=== PATIENT | male | born 1970 | race Caucasian/White ===

== ENCOUNTER 2020-02-14 16:13 | Outpatient (CLI) | payer OTHER, SELFPAY ==
[2020-02-14 16:45] LABS: Basophils Absolute Auto 0.06 K/mm3 (0.00-0.10); Basophils Percent Auto 0.7 % (0.0-1.0); Eosinophils Absolute Auto 0.33 K/mm3 (0.02-0.50); Eosinophils Percent Auto 3.7 % (1.0-6.0); Hematocrit 45.4 % (40.0-54.0); Hemoglobin 15.8 g/dL (14.0-18.0); Immature Granulocyte Absolute 0.03 K/mm3 (0.00-0.00); Immature Granulocyte Percent A 0.3 % (0.0-0.0); Lymphocytes Absolute Auto 2.49 K/mm3 (1.10-4.50); Mean Corpuscular HGB Conc 34.8 g/dL (32.0-36.0); Mean Corpuscular Hemoglobin 31.1 pg (27.0-31.0); Mean Corpuscular Volume 89.4 fL (78.0-102.0); Mean Platelet Volume 9.7 fl (8.7-11.0); Monocytes Absolute Auto 0.86 K/mm3 (0.10-0.90); Monocytes Percent Auto 9.7 % (2.0-11.0); Neutrophils Absolute Auto 5.1 K/mm3 (1.7-7.2); Neutrophils Percent Auto 57.6 % (50.0-70.0); Platelet Count Result 265 K/mm3 (150-420); Red Blood Count 5.08 M/mm3 (4.70-6.10); Red Cell Distribution Width 11.9 % (11.6-14.4); White Blood Count 8.9 K/mm3 (4.8-10.8)
[2020-02-14 16:50] LABS: Add Urine Microscopic? YES; Appearance Urine Clear (Clear); Bilirubin Urine Negative (Negative); Blood Urine Negative (Negative); Color Urine Yellow (Yellow); Glucose Urine UA Negative (Negative); Ketones Urine Negative (Negative); Leukocyte Esterase Ur Negative (Negative); Nitrate Urine Negative (Negative); Protein Urine Trace (Negative); Specific Grav Ur 1.025 (1.010-1.020); Urobilinogen Urine 0.2 mg/dL (0.2-1.0)
[2020-02-14 17:03] LABS: Bacteria Urine Trace /hpf; RBC Urine 0-2 /hpf (0-2); WBC Urine 0-3 /hpf (0-3)
[2020-02-14 18:05] LABS: Alanine Aminotransferase 59 U/L (16-63); Albumin Level 4.4 g/dL (3.4-5.0); Alkaline Phosphatase 87 U/L (46-116); Anion Gap 14.1 mmol/L (7-16); Aspartate Amino Transferase 27 U/L (15-37); Bilirubin,Total 1.1 mg/dL (0.00-1.00); Blood Urea Nitrogen 18 mg/dL (7-18); Calcium 8.9 mg/dL (8.5-10.1); Carbon Dioxide 26 mmol/L (21-32); Chloride 105 mmol/L (98-108); Cholesterol 153 mg/dL (0-200); Estimated Glomerular Filt Rate > 60; Glucose 82 mg/dL (70-99); HDL Direct 50 mg/dL (40-60); LDL Cholesterol Calculated 89 mg/dL (<130); Osmolality Calculated 292 mOsm/kg (285-295); Potassium 4.1 mmol/L (3.5-5.1); Sodium 141 mmol/L (136-145); Total Protein 7.1 g/dL (6.4-8.2); Triglycerides 71 mg/dL (0-150)
== END 2020-02-14 16:14 | disposition home or self-care (01) ==
LOC: CHSLAB 16:22
PROVIDERS: PCP Internal Medicine; Visit Provider Internal Medicine
DX: Z00.00 Encounter for general adult medical examination without abnormal findings (principal); I25.10 Atherosclerotic heart disease of native coronary artery without angina pectoris; E78.5 Hyperlipidemia, unspecified; Z12.5 Encounter for screening for malignant neoplasm of prostate
CPT/HCPCS: 36415; 80053; 80061; 81001; 84153; 85025; G0103

== ENCOUNTER 2020-03-09 17:27 | Emergency (ER) | payer OTHER, SELFPAY ==
[2020-03-09 17:32] VITALS: BP 155/99; PULSE 70; RESP 20; TEMP 36.6; O2SAT 97
[2020-03-09] MEDS: TETANUS,DIPHTHERIA,AC PERTUSSIS ADULT 0.5 ML (ADACEL) IM (17:47)
--- NOTE | 2020-03-09 17:48 | ED_ITS ---
HPI - Extremity Problem General Chief complaint: Wound/Laceration Stated complaint: cut finger Source: patient Mode of arrival: ambulatory Limitations: no limitations History of Present Illness HPI Narrative: this is a 49-year-old male presents with injury to his right index finger after he was using a cutting knife in the kitchen and causing avulsion injury to the tip of his right index finger, currently bleeding otherwise has a good brisk radial pulse no other symptoms, no fever or chills no shortness of breath. Patient does take aspirin because of status post CA. MD Complaint: extremity pain Onset (ago): minute(s) Pain Consistency: constant Location: right and other (indec finger avulsion) Quality: aching Relieving factors: other (pressure) Exacerbating factors: nothing Review of Systems Review of Systems: All systems reviewed & are unremarkable except as noted in HPI and below PMFSH Past Medical History Medical History CAD (coronary artery disease) Exam Const: General: no acute distress and alert Nutritional Appearance: well nourished Orientation/consciousness: patient oriented x3 HENMT: Head: normal to inspection Eyes: Conjunctivae: conjunctivae normal Pupils: Equal, round and reactive pupils present Neck: Neck: normal visual inspection Chest: Chest palpation & inspection: normal inspection of the chest Resp: Effort & Inspection: normal respiratory effort Auscultation: clear to auscultation bilaterally GI: GI Palp: Yes Soft to palpation : Testes: Testes normal Skin: General skin exam: normal color Rashes: no rashes Wounds: wounds noted ( avulsion injury to the tip of his right index finger) Procedures Laceration Laceration 1: Date: 03/09/20 Time: 17:52 Side (If applicable): right ( avulsion injury of the tip of his right index finger) Description: other ( tetanus shot was given and Surgicel was placed on the tip of his finger) ====== Skin Level ====== ====== Subcutaneous Layer ====== ====== Muscle Layer ====== ====== Tendon Layer ====== Critical Care Time Critical Care Time Critical Care Time: No Discharge Plan Discharge Clinical Impression: Avulsion of skin Patient Disposition: Home, Self-Care Condition: Stable Instructions: Antibiotic Form, Skin Avulsion (ED) Additional Instructions: can remove Surgicel after 24 hours. If symptoms persist or worsen can follow- up with primary care physician. Follow-up/Referrals: Luther Elkins MD [Primary Care Provider] - Time of Disposition: 17:54
== END 2020-03-09 18:00 | disposition home or self-care (01) ==
PROVIDERS: Emergency Provider Emergency Medicine; PCP Internal Medicine
DX: S61.210A Laceration without foreign body of right index finger without damage to nail, initial encounter (principal); W26.0XXA Contact with knife, initial encounter
CPT/HCPCS: 12001; 90471; 90715; 99282

== ENCOUNTER 2020-10-03 06:59 | Outpatient (CLI) | payer OTHER, SELFPAY ==
[2020-10-03 09:01] LABS: Aspartate Amino Transferase 26 U/L (15-37); Cholesterol 158 mg/dL (0-200); HDL Direct 45 mg/dL (40-60); LDL Cholesterol Calculated 97 mg/dL (<130); Triglycerides 80 mg/dL (0-150)
== END 2020-10-03 07:00 | disposition home or self-care (01) ==
LOC: CHSLAB 07:04
PROVIDERS: PCP Internal Medicine; Visit Provider Specialist
DX: E78.5 Hyperlipidemia, unspecified (principal); I25.10 Atherosclerotic heart disease of native coronary artery without angina pectoris; Z79.899 Other long term (current) drug therapy
CPT/HCPCS: 36415; 80061; 84450

== ENCOUNTER 2021-01-13 09:48 | Outpatient (CLI) | payer OTHER, SELFPAY ==
[2021-01-13 10:45] LABS: Aspartate Amino Transferase 18 U/L (15-37)
[2021-01-16 07:56] LABS: Cholesterol 130 mg/dL (0-200); HDL Direct 47 mg/dL (40-60); LDL Cholesterol Calculated 74 mg/dL (<130); Triglycerides 46 mg/dL (0-150)
== END 2021-01-13 09:49 | disposition home or self-care (01) ==
LOC: CHSLAB 09:50
PROVIDERS: PCP Internal Medicine; Visit Provider Specialist
DX: E78.5 Hyperlipidemia, unspecified (principal)
CPT/HCPCS: 36415; 80061; 84450

== ENCOUNTER 2021-02-17 04:21 | Emergency (ER) | payer OTHER, SELFPAY ==
--- NOTE | ~2021-02-17 | XR_ITS ---
XR chest 2V DATE: 02/17/2021 05:01 INDICATION: Shortness of breath TECHNIQUE: 2 views COMPARISON: 03/13/2015 2 view chest FINDINGS: Normal heart size. No hilar or mediastinal enlargement. No pulmonary infiltrate or consolid ation, pleural effusion or pulmonary vascular congestion or pneumothorax. IMPRESSION: No active cardiopulmonary disease Reviewed, dictated and finalized at location A.
--- NOTE | 2021-02-17 04:27 | ECG_ITS ---
Measurements Intervals [place] Rate: 71 P: 29 ME: 190 QRS: -5 QRSD: 89 T: 18 QT: 384 QTc: 419 Interpretive Statements SINUS RHYTHM INFERIOR INFARCT, AGE INDETERMINATE BASELINE ARTIFACT- V4-V6 ABNORMAL ECG Electronically Signed On 02-17-2021 11:36:44 CDT by Phillip Carrion D.O.
[2021-02-17 04:33] VITALS: BP 150/90; PULSE 99; RESP 18; TEMP 36.6; O2SAT 98
--- NOTE | 2021-02-17 04:39 | ED.SOB ---
HPI - SOB/Dyspnea General Chief Complaint: Shortness of Breath/Dyspnea Stated Complaint: Throat Swollen Time Seen by Provider: 02/17/21 04:50 Source: patient and family Mode of arrival: ambulatory Limitations: no limitations History of Present Illness HPI Narrative: Patient comes in with complaints of swelling in his uvula. Patient states he was well when he went to bed and woke up with swelling in his uvula 4am, and has felt his throat was swelled. He has had no fever or chills. He has not had a cough. He has had no significant nasal discharge. He has not felt the swelling in the uvula has gotten any worse since it started. The swelling has been associated with some mild anxiety. Onset (ago): minute(s) Timing: constant Severity: mild Exacerbating factors: lying flat Relieving factors: upright position Associated symptoms: denies other symptoms Related Data Home Medications Medication Instructions Recorded Confirmed alprazolam 0.25 mg PO PRN PRN 03/09/20 02/17/21 aspirin [Aspirin Low Dose] 81 mg PO DAILY 03/09/20 02/17/21 atorvastatin 40 mg PO DAILY 03/09/20 02/17/21 carvedilol 3.125 mg PO BID 03/09/20 02/17/21 duloxetine 30 mg PO DAILY 03/09/20 02/17/21 lisinopril 2.5 mg PO DAILY 03/09/20 02/17/21 lorazepam 0.5 mg PO HS 03/09/20 02/17/21 Allergies Allergy/AdvReac Type Severity Reaction Status Date / Time Penicillins Allergy Rash Verified 03/09/20 18:06 Review of Systems Constitutional: Constitutional: Reports no additional constitutional complaints Eyes: Eyes: Reports no additional eye complaints ENT: Reports as per HPI Cardiovascular: Cardiovascular: Reports no additional cardiovascular complaints Respiratory: Respiratory: Reports no additional respiratory complaints Gastrointestinal: Gastrointestinal: Reports no additional gastrointestinal complaints Genitourinary: Genitourinary: Reports no additional male genitourinary complaints Integumentary/Breasts: Skin/Breast: Reports system reviewed and no additional complaints, except as docu Neurologic: Reports system reviewed and no additional complaints, except as documented Psychiatric: Psychiatric: Reports no additional psychiatric complaints Endocrine: Endocrine: Reports no additional endocrine complaints Hematologic/Lymphatic: Hematologic/Lymphatic: Reports no additional hematologic/lymphatic complaints Allergic/Immunologic: Allergic/Immunologic: Reports no additional allergic/immunologic complaints [facility] Past Medical History Medical History (Updated 02/17/21 @ 06:57 by Elie Davis MD) Anxiety disorder CAD (coronary artery disease) Hyperlipidemia Hypertension Surgical History Surgical History H/O vasectomy Family History Family History Mother Cerebrovascular accident Father CAD (coronary artery disease) Social History Social History Gender identity (if verbalized by the patient): Male Exam Const: General: no acute distress Orientation/consciousness: patient oriented x3 HENMT: Ears: external ears normal and TM's normal bilaterally General nose exam: Normal external nose present Face and sinus: normal facial exam Mouth: Yes Normal oral and palatal mucosa present Other: Uvula appears moderately swollen. No nodes felt. Eyes: Conjunctivae: conjunctivae normal Neck: Neck: normal visual inspection Chest: Chest palpation & inspection: normal inspection of the chest Resp: Effort & Inspection: normal respiratory effort Auscultation: clear to auscultation bilaterally Cardio: Rate: regular rate Rhythm: regular rhythm GI: GI Palp: Yes Soft to palpation (nontender) Skin: General skin exam: normal color Neuro: General: patient oriented x3 and moves all extremities Extrem: General: normal to inspection Psych: Mental Status: mental status grossly normal Thoug
[2021-02-17 04:45] LABS: Basophils Absolute Auto 0.06 K/mm3 (0.00-0.10); Basophils Percent Auto 0.6 % (0.0-1.0); Eosinophils Percent Auto 3.8 % (1.0-6.0); Hematocrit 45.4 % (40.0-54.0); Hemoglobin 15.5 g/dL (14.0-18.0); Immature Granulocyte Absolute 0.02 K/mm3 (0.00-0.00); Immature Granulocyte Percent A 0.2 % (0.0-0.0); Lymphocytes Absolute Auto 1.81 K/mm3 (1.10-4.50); Lymphocytes Percent Auto 17.1 % (18.0-42.0); Mean Corpuscular HGB Conc 34.1 g/dL (32.0-36.0); Mean Corpuscular Hemoglobin 30.4 pg (27.0-31.0); Mean Platelet Volume 9.7 fl (8.7-11.0); Monocytes Absolute Auto 0.84 K/mm3 (0.10-0.90); Monocytes Percent Auto 7.9 % (2.0-11.0); Neutrophils Absolute Auto 7.4 K/mm3 (1.7-7.2); Neutrophils Percent Auto 70.4 % (50.0-70.0); Platelet Count Result 224 K/mm3 (150-420); Red Cell Distribution Width 11.9 % (11.6-14.4); White Blood Count 10.6 K/mm3 (4.8-10.8)
[2021-02-17 04:58] LABS: D Dimer 0.33 mg/L (0.19-0.50)
[2021-02-17 05:00] LABS: BNP 5.7 pg/mL (0-100)
[2021-02-17] MEDS: DEXAMETHASONE SOD PHOS INJ 4 MG/ML VIAL 12 MG BY MOUTH (05:01)
[2021-02-17 05:02] LABS: Alanine Aminotransferase 64 U/L (16-63); Alkaline Phosphatase 82 U/L (46-116); Anion Gap 8 mmol/L (8-16); Aspartate Amino Transferase 25 U/L (15-37); Bilirubin,Total 0.7 mg/dL (0.00-1.00); Blood Urea Nitrogen 23 mg/dL (7-18); Calcium 8.5 mg/dL (8.5-10.1); Carbon Dioxide 26 mmol/L (21-32); Chloride 102 mmol/L (98-108); Estimated CRCL calculation 72 ml/min; Estimated Glomerular Filt Rate > 60; Glucose 109 mg/dL (70-99); Osmolality Calculated 286 mOsm/kg (285-295); Potassium 4.1 mmol/L (3.5-5.1); Sodium 136 mmol/L (136-145); Total Protein 7.1 g/dL (6.4-8.2); Troponin I 7.6 ng/L (0.00-60.4)
[2021-02-17] MEDS: FAMOTIDINE 20 MG TABLET 40 MG PO (05:02)
[2021-02-17] MEDS: EPINEPHrine HCL INJ 1 MG/ML AMPUL 0.3 MG IM (05:02)
[2021-02-17] MEDS: diphenhydrAMINE HCl INJ 50 MG/ML VIAL IM (05:02)
--- NOTE | 2021-02-17 05:25 | PC.NURSE ---
resting quietly, at side. No SOB noted
[2021-02-17 07:50] VITALS: BP 126/89
== END 2021-02-17 07:50 | disposition home or self-care (01) ==
PROVIDERS: Emergency Provider Emergency Medicine; PCP Internal Medicine
DX: T78.40XA Allergy, unspecified, initial encounter (principal)
CPT/HCPCS: 36415; 71046; 80053; 83880; 84484; 85025; 85380; 93005; 96372; 99283; 99284; A9270; J0171; J1100; J1200

== ENCOUNTER 2021-06-13 09:07 | Outpatient (CLI) | payer OTHER, SELFPAY ==
[2021-06-13 11:05] LABS: Alanine Aminotransferase 59 U/L (16-63); Albumin Level 4.3 g/dL (3.4-5.0); Alkaline Phosphatase 85 U/L (46-116); Anion Gap 12 mmol/L (8-16); Aspartate Amino Transferase 24 U/L (15-37); Bilirubin,Total 0.9 mg/dL (0.00-1.00); Blood Urea Nitrogen 20 mg/dL (7-18); Calcium 9.1 mg/dL (8.5-10.1); Carbon Dioxide 25 mmol/L (21-32); Chloride 105 mmol/L (98-108); Estimated Glomerular Filt Rate > 60; Glucose 93 mg/dL (70-99); Osmolality Calculated 296 mOsm/kg (285-295); Potassium 4.4 mmol/L (3.5-5.1); Sodium 142 mmol/L (136-145)
[2021-06-18 19:32] LABS: Hepatitis A Antibody IgM Nonreactive; Hepatitis B Core Antibody Nonreactive (Nonreactive); Hepatitis B Surface Antigen Nonreactive (Nonreactive); Hepatitis C Signal to Cutoff 0.01 ratio (<1.00); Hepatitis C Virus Antibody Nonreactive (Nonreactive)
== END 2021-06-13 09:08 | disposition home or self-care (01) ==
LOC: CHSLAB 09:09
PROVIDERS: PCP Internal Medicine; Visit Provider Internal Medicine
DX: R94.5 Abnormal results of liver function studies (principal)
CPT/HCPCS: 36415; 80053; 80074

== ENCOUNTER 2021-10-17 16:05 | Outpatient (CLI) | payer OTHER, SELFPAY ==
[2021-10-17 16:56] LABS: Alanine Aminotransferase 52 U/L (16-63); Albumin Level 4.3 g/dL (3.4-5.0); Alkaline Phosphatase 86 U/L (46-116); Anion Gap 9 mmol/L (8-16); Aspartate Amino Transferase 23 U/L (15-37); Blood Urea Nitrogen 19 mg/dL (7-18); Calcium 9.2 mg/dL (8.5-10.1); Carbon Dioxide 29 mmol/L (21-32); Chloride 101 mmol/L (98-108); Cholesterol 149 mg/dL (0-200); Estimated Glomerular Filt Rate > 60; Glucose 95 mg/dL (70-99); HDL Direct 47 mg/dL (40-60); LDL Cholesterol Calculated 83 mg/dL (<130); Osmolality Calculated 290 mOsm/kg (285-295); Potassium 4.6 mmol/L (3.5-5.1); Prostate Specific Antigen 1.6 ng/mL (< OR = 4.0); Sodium 139 mmol/L (136-145); Total Protein 7.7 g/dL (6.4-8.2); Triglycerides 94 mg/dL (0-150)
== END 2021-10-17 16:06 | disposition home or self-care (01) ==
LOC: CHSLAB 16:13
PROVIDERS: PCP Internal Medicine; Visit Provider Internal Medicine
DX: Z00.00 Encounter for general adult medical examination without abnormal findings (principal); Z12.5 Encounter for screening for malignant neoplasm of prostate
CPT/HCPCS: 36415; 80053; 80061; 84153; G0103

== ENCOUNTER 2022-05-27 13:06 | Outpatient (CLI) | payer OTHER, BC, SELFPAY ==
[2022-05-27 13:30] LABS: Basophils Absolute Auto 0.03 K/mm3 (0.00-0.10); Basophils Percent Auto 0.5 % (0.0-1.0); Eosinophils Absolute Auto 0.28 K/mm3 (0.02-0.50); Eosinophils Percent Auto 4.3 % (1.0-6.0); Hematocrit 43.7 % (40.0-54.0); Hemoglobin 15.1 g/dL (14.0-18.0); Immature Granulocyte Absolute 0.02 K/mm3 (0.00-0.00); Immature Granulocyte Percent A 0.3 % (0.0-0.0); Lymphocytes Absolute Auto 1.65 K/mm3 (1.10-4.50); Lymphocytes Percent Auto 25.2 % (18.0-42.0); Mean Corpuscular HGB Conc 34.6 g/dL (32.0-36.0); Mean Corpuscular Hemoglobin 30.9 pg (27.0-31.0); Mean Corpuscular Volume 89.5 fL (78.0-102.0); Mean Platelet Volume 9.6 fl (8.7-11.0); Monocytes Absolute Auto 0.61 K/mm3 (0.10-0.90); Monocytes Percent Auto 9.3 % (2.0-11.0); Neutrophils Percent Auto 60.4 % (50.0-70.0); Platelet Count Result 210 K/mm3 (150-420); Red Blood Count 4.88 M/mm3 (4.70-6.10); Red Cell Distribution Width 11.9 % (11.6-14.4); White Blood Count 6.5 K/mm3 (4.8-10.8)
[2022-05-27 13:31] LABS: Add Urine Microscopic? NO; Appearance Urine Clear (Clear); Bilirubin Urine Negative (Negative); Blood Urine Negative (Negative); Color Urine Yellow (Yellow); Glucose Urine UA Negative (Negative); Ketones Urine Negative (Negative); Leukocyte Esterase Ur Negative (Negative); Nitrate Urine Negative (Negative); Protein Urine Negative (Negative); Urobilinogen Urine 0.2 mg/dL (0.2-1.0); pH Urine 6.5 (5.0-8.0)
[2022-05-27 13:47] LABS: Alanine Aminotransferase 57 U/L (16-63); Albumin Level 4.1 g/dL (3.4-5.0); Alkaline Phosphatase 85 U/L (46-116); Anion Gap 7 mmol/L (8-16); Aspartate Amino Transferase 24 U/L (15-37); Blood Urea Nitrogen 18 mg/dL (7-18); Calcium 8.7 mg/dL (8.5-10.1); Carbon Dioxide 27 mmol/L (21-32); Chloride 107 mmol/L (98-108); Cholesterol 141 mg/dL (0-200); Estimated Glomerular Filt Rate > 60; Glucose 102 mg/dL (70-99); HDL Direct 56 mg/dL (40-60); LDL Cholesterol Calculated 73 mg/dL (<130); Osmolality Calculated 293 mOsm/kg (285-295); Potassium 4.2 mmol/L (3.5-5.1); Sodium 141 mmol/L (136-145); Total Protein 7.1 g/dL (6.4-8.2); Triglycerides 59 mg/dL (0-150)
== END 2022-05-27 13:07 | disposition home or self-care (01) ==
LOC: CHSLAB 13:18
PROVIDERS: PCP Internal Medicine; Visit Provider Internal Medicine
DX: E78.5 Hyperlipidemia, unspecified (principal); I10 Essential (primary) hypertension
CPT/HCPCS: 36415; 80053; 80061; 81003; 85025

== ENCOUNTER 2022-12-02 16:34 | Outpatient (CLI) | payer OTHER, BC, SELFPAY ==
[2022-12-02 17:31] LABS: Prostate Specific Antigen 2.3 ng/mL (< OR = 4.0)
== END 2022-12-02 16:35 | disposition home or self-care (01) ==
LOC: CHSLAB 16:37
PROVIDERS: PCP Internal Medicine; Visit Provider Internal Medicine
DX: Z12.5 Encounter for screening for malignant neoplasm of prostate (principal)
CPT/HCPCS: 36415; 84153; G0103

== ENCOUNTER 2023-06-27 08:37 | Outpatient (CLI) | payer OTHER, BC, SELFPAY ==
[2023-06-27 08:49] LABS: Basophils Absolute Auto 0.07 K/mm3 (0.00-0.10); Basophils Percent Auto 1.2 % (0.0-1.0); Eosinophils Absolute Auto 0.26 K/mm3 (0.02-0.50); Eosinophils Percent Auto 4.5 % (1.0-6.0); Hematocrit 46.8 % (40.0-54.0); Hemoglobin 16.3 g/dL (14.0-18.0); Immature Granulocyte Absolute 0.01 K/mm3 (0.00-0.00); Immature Granulocyte Percent A 0.2 % (0.0-0.0); Lymphocytes Absolute Auto 1.42 K/mm3 (1.10-4.50); Lymphocytes Percent Auto 24.8 % (18.0-42.0); Mean Corpuscular HGB Conc 34.8 g/dL (32.0-36.0); Mean Corpuscular Hemoglobin 30.8 pg (27.0-31.0); Mean Corpuscular Volume 88.3 fL (78.0-102.0); Mean Platelet Volume 9.5 fl (8.7-11.0); Monocytes Absolute Auto 0.43 K/mm3 (0.10-0.90); Monocytes Percent Auto 7.5 % (2.0-11.0); Neutrophils Absolute Auto 3.5 K/mm3 (1.7-7.2); Neutrophils Percent Auto 61.8 % (50.0-70.0); Platelet Count Result 240 K/mm3 (150-420); Red Cell Distribution Width 11.7 % (11.6-14.4); White Blood Count 5.7 K/mm3 (4.8-10.8)
[2023-06-27 09:19] LABS: Alanine Aminotransferase 39 U/L (16-63); Alkaline Phosphatase 101 U/L (46-116); Anion Gap 10 mmol/L (8-16); Aspartate Amino Transferase 17 U/L (15-37); Bilirubin,Total 0.9 mg/dL (0.00-1.00); Blood Urea Nitrogen 21 mg/dL (7-18); Carbon Dioxide 26 mmol/L (21-32); Chloride 104 mmol/L (98-108); Cholesterol 138 mg/dL (0-200); Estimated Glomerular Filt Rate > 60; Glucose 101 mg/dL (70-99); HDL Direct 42 mg/dL (40-60); LDL Cholesterol Calculated 86 mg/dL (<130); Osmolality Calculated 293 mOsm/kg (285-295); Potassium 4.5 mmol/L (3.5-5.1); Sodium 140 mmol/L (136-145); Total Protein 6.9 g/dL (6.4-8.2); Triglycerides 49 mg/dL (0-150)
== END 2023-06-27 08:38 | disposition home or self-care (01) ==
LOC: CHSLAB 08:39
PROVIDERS: PCP Internal Medicine; Visit Provider Internal Medicine
DX: I10 Essential (primary) hypertension (principal); E78.5 Hyperlipidemia, unspecified
CPT/HCPCS: 36415; 80053; 80061; 85025

== ENCOUNTER 2023-10-15 13:47 | Outpatient (CLI) | payer OTHER, BC, SELFPAY ==
[2023-10-15 14:56] LABS: Alanine Aminotransferase 90 U/L (16-63); Albumin Level 4.5 g/dL (3.4-5.0); Alkaline Phosphatase 96 U/L (46-116); Anion Gap 7 mmol/L (8-16); Aspartate Amino Transferase 39 U/L (15-37); Bilirubin,Total 1.4 mg/dL (0.00-1.00); Blood Urea Nitrogen 17 mg/dL (7-18); Calcium 9.3 mg/dL (8.5-10.1); Carbon Dioxide 30 mmol/L (21-32); Chloride 102 mmol/L (98-108); Cholesterol 132 mg/dL (0-200); Creatine Kinase 113 U/L (39-308); Estimated Glomerular Filt Rate > 60; Glucose 91 mg/dL (70-99); HDL Direct 50 mg/dL (40-60); LDL Cholesterol Calculated 67 mg/dL (<130); Osmolality Calculated 289 mOsm/kg (285-295); Potassium 4.1 mmol/L (3.5-5.1); Sodium 139 mmol/L (136-145); Total Protein 7.7 g/dL (6.4-8.2); Triglycerides 74 mg/dL (0-150)
== END 2023-10-15 13:48 | disposition home or self-care (01) ==
PROVIDERS: PCP Internal Medicine; Visit Provider Internal Medicine
DX: E78.5 Hyperlipidemia, unspecified (principal); I10 Essential (primary) hypertension
CPT/HCPCS: 36415; 80053; 80061; 82550

== ENCOUNTER 2024-01-14 19:47 | Emergency (ER) | payer OTHER, BC, SELFPAY ==
[2024-01-14] VITALS (27 sets, daily range): BP systolic 102–151; BP diastolic 65–96; PULSE 56–77; RESP 14–27; TEMP 35.8–36.4; O2SAT 88–100
--- NOTE | ~2024-01-14 | XR_ITS ---
EXAMINATION: XR chest 1V portable INDICATION: Chest pain TECHNIQUE: Portable AP chest at 2030 hours COMPARISON: 02/17/2021 FINDINGS: The lungs are free of acute opacities. No pleural effusion or pneumothorax. The cardiomedia stinal silhouette is normal. IMPRESSION: 1. No acute cardiopulmonary abnormality. Reviewed, dictated and finalized at location F. NNER
--- NOTE | 2024-01-14 19:48 | ECG_ITS ---
Measurements Intervals [place] Rate: 64 P: 33 [place]: 178 QRS: -2 QRSD: 87 T: 42 QT: 410 QTc: 424 Interpretive Statements SINUS RHYTHM COMPARED TO ECG 02/17/2021 04:35:29 NO SIGNIFICANT CHANGES Electronically Signed On 01-15-2024 15:24:20 CIRCULATION ASSISTANT by Tera Reyes M.D.
--- NOTE | 2024-01-14 19:54 | ED.CHESTPAIN ---
HPI - Chest Pain General Chief Complaint: Chest Pain Stated Complaint: chest pain Time Seen by Provider: 01/14/24 19:54 Source: patient and family Mode of arrival: ambulatory Limitations: no limitations History of Present Illness HPI narrative: 53-year-old male with a remote history of smoking and quit 25 years ago, regular alcohol use, hypertension, dyslipidemia, CAD/DE in 2012 following which he had a cardiac catheterization which did not show any significant occlusive disease was recently treated for bronchitis with bronchospasm with Zithromax presents to the ER with a 40 minute history of -- severe epigastric pain which is rated as 6/10. Pain is intermittent. No relief with sublingual nitro. No radiation of the pain. -- Diaphoresis no shortness of breath. No lightheadedness. No nausea/vomiting. after his cardiac event in 2012 the patient has not had any episodes of chest pain. MD complaint: other ( Epigastric pain) Pertinent past history: prior [place] Onset (ago): minute(s) ( 40 minutes) Timing of current episode: episodic Prior episodes: No Onset: during rest Pain location: epigastric Pain radiation: none Pain scale (0-10): 6 Quality: aching Relieving factors: nothing Exacerbating factors: nothing Associated symptoms: diaphoresis Treatment prior to arrival: none Risk Factors Coronary artery disease risk factors: hyperlipidemia and hypertension Thoracic aortic dissection risk factors: longstanding hypertension Related Data Home Medications Medication Instructions Recorded Confirmed alprazolam 0.25 mg tablet (Xanax) 0.25 mg PO PRN PRN Anxiety 03/09/20 01/14/24 aspirin 81 mg tablet,delayed 81 mg PO DAILY 03/09/20 01/14/24 release (Jonel Low Dose Aspirin) atorvastatin 40 mg tablet (Lipitor) 40 mg PO DAILY 03/09/20 01/14/24 carvedilol 3.125 mg tablet (Coreg) 3.125 mg PO BID 03/09/20 01/14/24 lorazepam 0.5 mg tablet (Ativan) 0.5 mg PO HS 03/09/20 01/14/24 losartan 50 mg tablet (Cozaar) 50 mg PO DAILY 01/14/24 01/14/24 Allergies Allergy/AdvReac Type Severity Reaction Status Date / Time niacin Allergy Unknown Unknown Verified 01/14/24 20:55 simvastatin Allergy Unknown Unknown Verified 01/14/24 20:55 ticagrelor Allergy Unknown Unknown Verified 01/14/24 20:55 Penicillins Allergy Rash Verified 01/14/24 20:55 Review of Systems Review of Systems: All systems reviewed & are unremarkable except as noted in HPI and below Constitutional: Constitutional: Reports as per HPI and Reports no additional constitutional complaints Eyes: Eyes: Reports as per HPI and Reports no additional eye complaints ENT: Reports system reviewed and no additional complaints, except as documented and Reports as per HPI Cardiovascular: Cardiovascular: Reports as per HPI, Reports no additional cardiovascular complaints and Reports chest pain Respiratory: Respiratory: Reports as per HPI and Reports no additional respiratory complaints Gastrointestinal: Gastrointestinal: Reports as per HPI and Reports no additional gastrointestinal complaints Comments: epigastric pain Genitourinary: Genitourinary: Reports no additional male genitourinary complaints and Reports as per HPI Musculoskeletal: Musculoskeletal: Reports no additional musculoskeletal complaints and Reports as per HPI Integumentary/Breasts: Skin/Breast: Reports system reviewed and no additional complaints, except as docu and Reports as per HPI Neurologic: Reports system reviewed and no additional complaints, except as documented and Reports as per HPI Psychiatric: Psychiatric: Reports no additional psychiatric complaints and Reports as per HPI Endocrine: Endocrine: Reports no additional endocrine complaints and Reports as per HPI Hematologic/Lymphatic: Hematologic/Lymphatic: Reports no additional hematologic/lymphatic complaints and Reports as per HPI Allergic/Immunologic: Allergic/Immunologic: Reports no additional allergic/immunologic complaints and Reports as per HPI
[2024-01-14 20:15] LABS: Basophils Absolute Auto 0.06 K/mm3 (0.00-0.10); Basophils Percent Auto 0.9 % (0.0-1.0); Eosinophils Absolute Auto 0.37 K/mm3 (0.02-0.50); Eosinophils Percent Auto 5.8 % (1.0-6.0); Hematocrit 44.2 % (40.0-54.0); Hemoglobin 15.5 g/dL (14.0-18.0); Immature Granulocyte Absolute 0.01 K/mm3 (0.00-0.00); Immature Granulocyte Percent A 0.2 % (0.0-0.0); Lymphocytes Absolute Auto 2.34 K/mm3 (1.10-4.50); Lymphocytes Percent Auto 36.7 % (18.0-42.0); Mean Corpuscular HGB Conc 35.1 g/dL (32.0-36.0); Mean Corpuscular Hemoglobin 29.7 pg (27.0-31.0); Mean Corpuscular Volume 84.7 fL (78.0-102.0); Mean Platelet Volume 9.2 fl (8.7-11.0); Monocytes Absolute Auto 0.48 K/mm3 (0.10-0.90); Monocytes Percent Auto 7.5 % (2.0-11.0); Neutrophils Absolute Auto 3.1 K/mm3 (1.7-7.2); Neutrophils Percent Auto 48.9 % (50.0-70.0); Platelet Count Result 263 K/mm3 (150-420); Red Blood Count 5.22 M/mm3 (4.70-6.10); Red Cell Distribution Width 11.5 % (11.6-14.4); White Blood Count 6.4 K/mm3 (4.8-10.8)
[2024-01-14 20:30] LABS: Partial Thromboplastin Time 26.1 SEC (23.90-30.70); Prothrombin Time 10.9 Seconds (9.50-12.10)
--- NOTE | 2024-01-14 20:30 | PC.NURSE ---
CHILD CARE COORDINATOR AT BEDSIDE FOR IMAGING. PATIENT AWAITING RESULTS OF BLOOD WORK. SPOUSE AT BEDSIDE.
[2024-01-14 20:39] LABS: Alanine Aminotransferase 70 U/L (16-63); Albumin Level 3.8 g/dL (3.4-5.0); Alkaline Phosphatase 103 U/L (46-116); Anion Gap 10 mmol/L (8-16); Aspartate Amino Transferase 26 U/L (15-37); Bilirubin,Total 0.7 mg/dL (0.00-1.00); Blood Urea Nitrogen 17 mg/dL (7-18); Calcium 8.9 mg/dL (8.5-10.1); Carbon Dioxide 27 mmol/L (21-32); Chloride 102 mmol/L (98-108); Estimated CRCL calculation 91 ml/min; Estimated Glomerular Filt Rate > 60; Glucose 121 mg/dL (70-99); Lipase 51 U/L (16-77); NT Pro B Type Natriuretic Pept 31 pg/mL (0-125); Osmolality Calculated 290 mOsm/kg (285-295); Potassium 3.7 mmol/L (3.5-5.1); Sodium 139 mmol/L (136-145); Troponin I 9.1 ng/L (0.00-60.4)
[2024-01-14] MEDS: ASPIRIN 81 MG CHEWABLE TABLET 324 MG PO (20:41)
--- NOTE | 2024-01-14 20:47 | PC.NURSE ---
PATIENT MEDICATED PER ORDER, SEE MAR. PATIENT AWAKE AND ALERT, NOW STATES PAIN IS 5-6/10. PATIENT AWAITING RESULTS. SPOUSE REMAINS AT BEDSIDE.
[2024-01-14] MEDS: MORPHINE SULFATE (*CRX) 4 MG/ML INJ IM (21:15)
[2024-01-14] MEDS: ONDANSETRON HCL ODT 4 MG TABLET PO (21:15)
--- NOTE | 2024-01-14 21:20 | PC.NURSE ---
PATIENT MEDICATED, SEE MAR. PATIENT DENIES FURTHER NEEDS, VSS. SPOUSE AT BEDSIDE. PATIENT AWARE OF REPEAT TROPONIN BLOOD WORK, TO BE DRAWN AROUND 2300. CALL LIGHT WITHIN REACH.
--- NOTE | 2024-01-14 21:45 | PC.NURSE ---
DR. DE AT BEDSIDE FOR RE-EVALUATION. PATIENT REPORTS CONTINUED PAIN DESPITE BEING MEDICATED, SEE MAR.
--- NOTE | 2024-01-14 21:53 | PC.NURSE ---
PER ERP PLEASE COMPLETE REPEAT EKG AT 2310. TO BE TIMED AND NOT STAT.
--- NOTE | 2024-01-14 22:05 | PC.NURSE ---
PATIENT AWAKE AND ALERT, RESTING ON STRETCHER WITH SPOUSE AT BEDSIDE. NO NEW NEEDS. NO DISTRESS. CALL LIGHT WITHIN REACH.
--- NOTE | 2024-01-14 23:10 | ECG_ITS ---
Measurements Intervals [place] Rate: 71 P: 68 [place]: 186 QRS: 5 QRSD: 104 T: 44 QT: 421 QTc: 459 Interpretive Statements SINUS RHYTHM COMPARED TO ECG 01/14/2024 19:56:51 NO SIGNIFICANT CHANGES Electronically Signed On 01-15-2024 15:24:37 EXHAUST AND MUFFLER REPAIRER by Tera Reyes M.D.
--- NOTE | 2024-01-14 23:12 | PC.NURSE ---
REPEAT EKG COMPLETED AND DOLORES AT BEDSIDE FOR REPEAT BLOOD DRAW. PATIENT AWAKE AND ALERT, DENIES NEEDS. SPOUSE REMAINS AT BEDSIDE. CALL LIGHT WITHIN REACH.
[2024-01-14 23:33] LABS: Troponin I 7.8 ng/L (0.00-60.4)
--- NOTE | 2024-01-14 23:45 | PC.NURSE ---
DR DE AT BEDSIDE FOR PATIENT UPDATE.
[2024-01-14] MEDS: PANTOPRAZOLE 40 MG TABLET PO (23:49)
--- NOTE | 2024-01-15 00:20 | PC.NURSE ---
PRINTER ISSUE TEMPORARILY DELAYED PATIENT DISCHARGE.
== END 2024-01-15 00:15 | disposition home or self-care (01) ==
PROVIDERS: Emergency Provider Internal Medicine Critical Care Medicine; PCP Internal Medicine
DX: R10.13 Epigastric pain (principal); R07.9 Chest pain, unspecified; I10 Essential (primary) hypertension; E78.5 Hyperlipidemia, unspecified; I25.2 Old myocardial infarction; I25.10 Atherosclerotic heart disease of native coronary artery without angina pectoris; F41.9 Anxiety disorder, unspecified; Z87.891 Personal history of nicotine dependence; Z79.82 Long term (current) use of aspirin; Z79.899 Other long term (current) drug therapy; Z95.5 Presence of coronary angioplasty implant and graft
CPT/HCPCS: 36415; 71045; 80053; 83690; 83880; 84484; 85025; 85610; 85730; 93005; 96372; 99284; A9270; J2270

== ENCOUNTER 2024-01-16 13:54 | Outpatient (CLI) | payer OTHER, BC, SELFPAY ==
[2024-01-16 14:33] LABS: Creatine Kinase 165 U/L (39-308); Lactate Dehydrogenase 209 U/L (85-227); Troponin I 9.4 ng/L (0.00-60.4)
== END 2024-01-16 13:55 | disposition home or self-care (01) ==
LOC: CHSLAB 13:57
PROVIDERS: PCP Internal Medicine; Visit Provider Internal Medicine
DX: R10.9 Unspecified abdominal pain (principal); R07.9 Chest pain, unspecified; R94.5 Abnormal results of liver function studies
CPT/HCPCS: 36415; 82550; 82553; 83615; 84484

== ENCOUNTER 2024-01-19 07:25 | Outpatient (CLI) | payer OTHER, BC, SELFPAY ==
--- NOTE | ~2024-01-19 | US_ITS ---
EXAMINATION: US right upper quadrant DATE: 01/19/2024 07:50 INDICATION: Epigastric abdominal pain. Abnormal liver function tests. TECHNIQUE: Multiple grayscale and Doppler ultrasound images of the abdomen were obtained. COMPARISON: CT abdomen and pelvis 12/20/2015 FINDINGS: The visualized portions of the head and body of pancreas are normal. The liver is normal wi thout focal lesion. No liver surface nodularity. There is normal flow in main portal vein. The gallbl adder is contracted. No gallstones. There was no sonographic Tolliver sign. The common duct is normal a nd measures 3 mm. IMPRESSION: 1. Normal right upper quadrant ultrasound. Reviewed, dictated and finalized at location E. WELL ENGINEER
== END 2024-01-19 07:26 | disposition home or self-care (01) ==
LOC: CHSIMG 07:27
PROVIDERS: PCP Internal Medicine; Visit Provider Internal Medicine
DX: R10.9 Unspecified abdominal pain (principal); R07.9 Chest pain, unspecified; R94.5 Abnormal results of liver function studies
CPT/HCPCS: 76705

== ENCOUNTER 2024-04-30 09:16 | Outpatient (CLI) | payer OTHER, BC, SELFPAY ==
[2024-04-30 10:18] LABS: Basophils Absolute Auto 0.07 K/mm3 (0.00-0.10); Basophils Percent Auto 1.2 % (0.0-1.0); Eosinophils Absolute Auto 0.29 K/mm3 (0.02-0.50); Eosinophils Percent Auto 5.1 % (1.0-6.0); Hematocrit 46.8 % (40.0-54.0); Hemoglobin 16.1 g/dL (14.0-18.0); Immature Granulocyte Absolute 0.02 K/mm3 (0.00-0.00); Immature Granulocyte Percent A 0.4 % (0.0-0.0); Lymphocytes Absolute Auto 1.51 K/mm3 (1.10-4.50); Lymphocytes Percent Auto 26.5 % (18.0-42.0); Mean Corpuscular HGB Conc 34.4 g/dL (32-36); Mean Corpuscular Hemoglobin 30.3 pg (27.0-31.0); Mean Corpuscular Volume 88.1 fL (78.0-102.0); Mean Platelet Volume 9.7 fl (8.7-11.0); Monocytes Absolute Auto 0.58 K/mm3 (0.10-0.90); Monocytes Percent Auto 10.2 % (2.0-11.0); Neutrophils Absolute Auto 3.23 K/mm3 (1.70-7.20); Neutrophils Percent Auto 56.6 % (50.0-70.0); Platelet Count Result 251 K/mm3 (150-420); Red Blood Count 5.31 M/mm3 (4.70-6.10); White Blood Count 5.7 K/mm3 (4.8-10.8)
[2024-04-30 10:20] LABS: Appearance Urine Clear (Clear); Bilirubin Urine Negative (Negative); Blood Urine Negative (Negative); Color Urine Light Yellow (Yellow); Glucose Urine UA Negative (Negative); Ketones Urine Negative (Negative); Leukocyte Esterase Ur Negative (Negative); Nitrate Urine Negative (Negative); Protein Urine Negative (Negative); Urobilinogen Urine 0.2 mg/dL (0.2-1.0); pH Urine 6.5 (5.0-8.0)
[2024-04-30 10:24] LABS: Add Urine Microscopic? NO
[2024-04-30 14:04] LABS: Alanine Aminotransferase 68 U/L (16-63); Albumin Level 3.9 g/dL (3.4-5.0); Alkaline Phosphatase 67 U/L (46-116); Anion Gap 11 mmol/L (4-12); Aspartate Amino Transferase 26 U/L (15-37); Bilirubin,Total 0.8 mg/dL (0.00-1.00); Blood Urea Nitrogen 16 mg/dL (7-18); Calcium 8.8 mg/dL (8.5-10.1); Carbon Dioxide 26 mmol/L (21-32); Chloride 101 mmol/L (98-108); Cholesterol 140 mg/dL (0-200); Estimated Glomerular Filt Rate > 60; Glucose 106 mg/dL (70-99); HDL Direct 54 mg/dL (40-60); LDL Cholesterol Calculated 77 mg/dL (<130); Magnesium 2.1 mg/dL (1.8-2.4); Osmolality Calculated 287 mOsm/kg (285-295); Potassium 4.2 mmol/L (3.5-5.1); Prostate Specific Antigen 1.1 ng/mL (< OR = 4.0); Sodium 138 mmol/L (136-145); Thyroid Stimulating Hormone 1.07 uIU/mL (0.36-3.74); Total Protein 6.8 g/dL (6.4-8.2); Triglycerides 45 mg/dL (0-150)
== END 2024-04-30 09:17 | disposition home or self-care (01) ==
PROVIDERS: PCP Internal Medicine; Visit Provider Internal Medicine
DX: Z00.00 Encounter for general adult medical examination without abnormal findings (principal); I25.10 Atherosclerotic heart disease of native coronary artery without angina pectoris
CPT/HCPCS: 36415; 80053; 80061; 81003; 83735; 84153; 84443; 85025; G0103

== ENCOUNTER 2025-02-26 22:25 | Emergency (ER) | payer OTHER, BC, SELFPAY ==
--- NOTE | ~2025-02-26 | XR_ITS ---
XR chest 1V portable Ordering provider: Octavio Vidales MD History: 54 years Male with . LOWER CHEST PAIN. . Comparison: January 14, 2024 FINDINGS: MEDIASTINUM: The cardiac silhouette is not enlarged. LUNGS: No infiltrates, effusions or pneumothorax. Slightly prominent bronchovascular markings seen in the perihilar areas. OTHER: No free air under the diaphragm. IMPRESSION: No acute cardiopulmonary pathology. Reviewed, dictated and finalized at location A.
[2025-02-26 22:25] VITALS: BP 136/99; PULSE 78; RESP 13; TEMP 36.9; O2SAT 95
--- NOTE | 2025-02-26 22:27 | ECG_ITS ---
Test Date: 2025-02-26 22:37:26 Measurements Intervals [place] Rate: 72 P: 48 [place]: 205 QRS: 17 QRSD: 96 T: 46 QT: 402 QTc: 441 Interpretive Statements SINUS RHYTHM CONSIDER INFERIOR INFARCT, AGE INDETERMINATE BASELINE ARTIFACT- II, III, AVR, AVL, AVF, V1-V2 ABNORMAL ECG No previous ECG available for comparison Electronically Signed On 02-27-2025 07:48:45 CDT by Phillip Carrion D.O.
--- OUTSIDE RECORDS SUMMARY | 2025-02-26 22:28 | XMS_ITS | Encounter Summary ---
Author Organization [facility] Address [address] [place] [address] Care Team Providers Care Director Enterprise Systems Name Role Phone Luther Elkins MD Primary Care Provider [phone] Solomon Arias MD, Jose Mitchell [phone] Encounter Details Date Type Department Care Team (Late st Contact Info) Description 06/28/2020 Abstract [facility] AT [facility] [address] [place] [address] Jose Carbajal MD [address] [address] Social History Tobacco Use Types Packs/Day Years Used Date Smoking Tobacco: Former Cigarettes Q uit: 1996 Smokeless Tobacco: Former Alcohol Use Standard Drinks/Week Comments Yes 0 (1 standard drink = 0.6 oz pur e alcohol) 12-18 per week in summertime Sex and Gender Information Value Date Recorded Sex Assigned at Not on file Legal Sex Male 8:54 PM CDT Gender Identity Not on file Sexual Orientation Not on file 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 No / Unsure 06/28/2020 10:02 AM CDT documented as of this encounter Plan of Treatment Upcoming Encounters Date Type Department Care Team (Late st Contact Info) Description 10/21/2025 11:00 AM HOLTER TECHNICIAN Office Visit [facility] eld [address] [place] [address] Kavitha Swain, ANP-BC [address] [facility] [address] [place] [phone] documented as of this encounter Procedures Procedure Name Priority Date/Time Associated Diagnosis Comments LIPID PANEL (OUTSIDE LAB) Routine 02/14/2020 CMP (OUTSIDE LAB) Routine 02/14/2020 documented in this encounter Results * LIPID PANEL (OUTSIDE LAB) (02/14/2020) CHOLESTEROL 153 TRIGLYCERIDES 71 HDL 50 LDL (CALCULATED) 89 02/14/2020 Luther Elkins MD LAB-OUTSIDE/ABSTRACTED Final Re sult * (ABNORMAL) CMP (OUTSIDE LAB) (02/14/2020) SODIUM S/P/B 141 POTASSIUM S/P/B 4.1 CHLORIDE S/P/B 105 CO2 26 BUN 18 CREATININE S/P/B 1.07 0.7 - 1.3 CALCIUM S/P/B 8.9 GLUCOSE 82 mg/dL TOTAL PROTEIN S/P/B 7.1 ALBUMIN S/P/B 4.4 3.5 - 5.0 AST 27 ALT 59 ALKALINE PHOSPHATASE S/P/B 87 BILIRUBIN TOTAL S/P/B 1.1(A) <=1.0 02/14/2020 Luther Elkins MD LAB-OUTSIDE/ABSTRACTED Final Re sult documented in this encounter Visit Diagnoses Not on filedocumented in this encounter Care Teams Director Enterprise Systems Relationship Specialty Start Date End Date Luther Elkins MD [address] [place] [address] PCP - General INTERNAL MEDICINE 11/27/16 Jose Carbajal MD [address] [place] [address] Consulting Physician CARDIOVASCULAR DISEASE 02/17/18 documented as of this encounter
--- OUTSIDE RECORDS SUMMARY | 2025-02-26 22:28 | XMS_ITS | Clinical Summary ---
Author Organization [facility] Address [address] [place] [address] Care Team Providers Care Manager Estate Name Role Phone Luther Elkins MD Primary Care Provider [phone] Solomon Arias MD, Jose Unavailable [phone] Allergies Active Allergy Reactions Criticality Noted Date Comments Lisinopril Angioedema 10/25/2021 Penicillins Unknown 11/25/2016 Medications aspirin (ASPIRIN ADULT LOW DOSE) 81 MG Tab EC Take 1 tablet by mouth daily. 3 Active nitroGLYCERIN (NITROSTAT) 0.4 MG SL tablet Nitrostat (Nitroglycerin) Tablet, Sublingual 0.4 Mg; place one tablet under tongue as needed for chest pain; 25; 3; -Feb-2015; Active 5 Active ezetimibe (ZETIA) 10 MG tablet Take 1 tablet (10 mg total) by mouth daily. 3 Active losartan-hydroC HLOROthiazide (HYZAAR) 50-12.5 MG tablet Take 1 tablet by mouth daily. 4 Active carvedilol (COREG) 12.5 MG tablet Take 1 tablet (12.5 mg total) by mouth 2 (two) times daily with meals. 180 tablet 3 4 Active rosuvastatin (CRESTOR) 40 MG tablet TAKE 1 TABLET (40 MG TOTAL) BY MOUTH NIGHTLY AT BEDTIME. 90 tablet 3 5 Active Active Problems Problem Noted Date Diagnosed Date CAD (coronary artery disease) 11/27/2016 Dyslipidemia 11/27/2016 Essential (primary) hypertension 11/27/2016 HTN (hypertension) Resolved Problems Problem Noted Date Diagnosed Date Resolved Date Dyslipidemia 10/25/2021 Encounters Date Type Department Care Team Description 12/03/2024 [facility]phone [facility] [address] [place] [phone] Kavitha Swain, ANP-BC Lab Results; Record Request from Last 3 Months Family History Medical History Relation Comments IN Father Stroke Mother Heart Disease Other premature martinez ry heart disease Relation Status Comments Father Mother Other Other Family history i s positive for premature coronary heart disease Social History Tobacco Use Types Packs/Day Years Used Date Smoking Tobacco: Former Cigarettes Q uit: 1996 Smokeless Tobacco: Former Alcohol Use Standard Drinks/Week Comments Yes 0 (1 standard drink = 0.6 oz pur e alcohol) 12-18 per week Sex and Gender Information Value Date Recorded Sex Assigned at Not on file Legal Sex Male 8:54 PM CDT Gender Identity Not on file Sexual Orientation Not on file 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 Last Filed Vital Signs Vital Sign Reading Time Taken Comments Blood Pressure 118/80 10/19/2024 10:31 AM ISOTOPE TECHNOLOGIST Pulse 67 10/19/2024 10:31 AM ISOTOPE TECHNOLOGIST Temperature - - Respiratory Rate 16 10/19/2024 10:31 AM ISOTOPE TECHNOLOGIST Oxygen Saturation 97% 10/19/2024 10:31 AM ISOTOPE TECHNOLOGIST Inhaled Oxygen Concentration - - Weight 110.7 kg (244 lb) 10/19/2024 10:31 AM ISOTOPE TECHNOLOGIST Height 177.8 cm (5' 10 ) 10/19/2024 10:31 AM ISOTOPE TECHNOLOGIST Body Mass Index 35.01 10/19/2024 10:31 AM ISOTOPE TECHNOLOGIST Plan of Treatment Upcoming Encounters Date Type Department Care Team (Late st Contact Info) Description 10/21/2025 11:00 AM ISOTOPE TECHNOLOGIST [facility] Visit [facility] [address] [place] [phone] Kavitha Swain, ANP-BC [address] [facility] [address] [place] [phone] Health Maintenance Due Date Last Done Comments Colorectal Cancer Screening Colonoscopy (10 Years) 1969 Annual Physical 1972 Pneumococcal Vaccine: Pediat rics (0 to 5 Years) and At-Risk Patients (6 to 64 Years) (1 of 2 - PCV) 1975 Hepatitis C 1987 DTaP, Tdap and Td Vaccines ( 1 - Tdap) 1988 Hepatitis B Vaccines (1 of 3 - 19+ 3-dose series) 1988 Zoster Vaccines (1 of 2) 2019 COVID-19 Vaccine ( - 2023-2 5 season) 2024 Meningococcal B Vaccine Aged Out No l onger eligible based on patient's age to complete this topic Meningococcal Vaccine Aged Out No deedee herberth eligible based on patient's age to complete this topic RSV Immunizations Under 20 Months Aged Out No longer eligible based on patient's age to complete this topic [place] [address] [place] [address] [employer] [facility] Care Teams Manager Estate Relationship Specialty Start Date End Date Luther Elkins MD [address] [place] [address] PCP - General INTERNAL MEDICINE 11/27/16 Jose Carbajal MD [address] [place] [address] Consulting Physician CARDIOVASCULAR DISEASE 02/17/18
--- OUTSIDE RECORDS SUMMARY | 2025-02-26 22:28 | XMS_ITS | Encounter Summary ---
Author Organization [facility] Address [address] [place] [address] Care Team Providers Care Library Historian Name Role Phone Luther Elkins MD Primary Care Provider [phone] Solomon Arias MD, Jose Mitchell [phone] Encounter Details Date Type Department Care Team (Late st Contact Info) Description 07/13/2015 Abstract [facility] AT [facility] [address] [place] [phone] Jose Carbajal MD [address] [address] Social History Tobacco Use Types Packs/Day Years Used Date Smoking Tobacco: Former Cigarettes Q uit: 1997 Alcohol Use Standard Drinks/Week Comments Yes 0 (1 standard drink = 0.6 oz pur e alcohol) Occasionally Sex and Gender Information Value Date Recorded Sex Assigned at Not on file Legal Sex Male 8:54 PM CDT Gender Identity Not on file Sexual Orientation Not on file 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 documented as of this encounter Plan of Treatment Upcoming Encounters Date Type Department Care Team (Late st Contact Info) Description 10/21/2025 11:00 AM MANUFACTURING STOREPERSON Office Visit [facility] eld [address] [place] [phone] Kavitha Swain, ANP-BC [address] [facility] [address] [place] [address] documented as of this encounter Visit Diagnoses Not on filedocumented in this encounter Care Teams Library Historian Relationship Specialty Start Date End Date Luther Elkins MD [address] [place] [address] PCP - General INTERNAL MEDICINE 11/27/16 Jose Carbajal MD [address] [place] [address] Consulting Physician CARDIOVASCULAR DISEASE 02/17/18 documented as of this encounter
--- OUTSIDE RECORDS SUMMARY | 2025-02-26 22:28 | XMS_ITS | Encounter Summary ---
Author Organization [facility] [place] Address [address] [place] [address] Care Team Providers Care Mediation Commissioner Name Role Phone Luther Elkins MD Primary Care Provider [phone] Solomon Arias MD, Jose Mitchell [phone] Encounter Details Date Type Department Care Team (Late st Contact Info) Description 11/25/2016 Abstract [facility] [address] [place] [address] Jose Carbajal MD [address] [address] Social History Tobacco Use Types Packs/Day Years Used Date Smoking Tobacco: Former Cigarettes Q uit: 1996 Alcohol Use Standard Drinks/Week Comments Yes 0 (1 standard drink = 0.6 oz pur e alcohol) Occasionally Sex and Gender Information Value Date Recorded Sex Assigned at Not on file Legal Sex Male 8:54 PM CDT Gender Identity Not on file Sexual Orientation Not on file 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 on file Not on dio e documented as of this encounter Plan of Treatment Upcoming Encounters Date Type Department Care Team (Late st Contact Info) Description 10/21/2025 11:00 AM VIAL GAUGER Office Visit [facility] eld [address] [place] [phone] Kavitha Swain, ANP-BC [address] [facility] [address] [place] [address] documented as of this encounter Visit Diagnoses Not on filedocumented in this encounter Care Teams Mediation Commissioner Relationship Specialty Start Date End Date Luther Elkins MD [address] [place] [address] PCP - General INTERNAL MEDICINE 11/27/16 Jose Carbajal MD [address] [place] [address] Consulting Physician CARDIOVASCULAR DISEASE 02/17/18 documented as of this encounter
--- NOTE | 2025-02-26 22:44 | ED_ITS ---
HPI - Chest Pain General Chief Complaint: Chest Pain Stated Complaint: epigastric abd pain Time Seen by Provider: 02/26/25 22:42 Source: patient Mode of arrival: ambulatory Limitations: no limitations History of Present Illness HPI narrative: 54-year-old white male complains of epigastric and lower chest pain started 20 minutes prior to admission he has had a myocardial infarction in 2012 and in 2019 he had some stomach issues that felt similar to this he is not sure which it was his pain was a 10 out 10 pain now is a 5/10 pain. The patient stating he woke up with pain 20 minutes prior to admission was epigastric sharp achy heavy pain. He had a heart attack in 2022 but now he says it does not really feel like that puts feels like his stomach issue they had. He did wake up sweaty. Patient denies any chest pain difficulty breathing or back pain. He is not any medicine for his stomach he said in 2022 they gave him some medicine for about a month. ROS: Patient woke up nauseated and diaphoretic. He denies any cough shortness of breath runny nose sore throat rash or itching bleeding or bruising lumps or bumps swelling weakness or numbness problems eating or drinking voiding or stooling problems walking talking seeing or hearing. He felt fine earlier in the day until he woke up with his epigastric pain. He denies any chest pain or back pain. His cash management specialist is from [facility] he is followed by Kavitha Altamirano CHIEF OPERATING OFFICER. Past medical history coronary artery disease hypertension hyperlipidemia no history of diabetes heart disease anemia thyroid disease arthritis. Family history is father of heart attack at age 74 his mother at age 79 but she has stroke at age 46. Related Data Home Medications ?Medication ?Instructions ?Recorded ?Confirmed ?Last Taken ?Type alprazolam 0.25 mg tablet (Xanax) 0.25 mg PO PRN PRN Anxiety 03/09/20 01/14/24 Unknown History aspirin 81 mg tablet,delayed 81 mg PO DAILY 03/09/20 01/14/24 Unknown History release (Jonel Low Dose Aspirin) atorvastatin 40 mg tablet (Lipitor) 40 mg PO DAILY 03/09/20 01/14/24 Unknown History carvedilol 3.125 mg tablet (Coreg) 3.125 mg PO BID 03/09/20 01/14/24 Unknown History lorazepam 0.5 mg tablet (Ativan) 0.5 mg PO HS 03/09/20 01/14/24 Unknown History losartan 50 mg tablet (Cozaar) 50 mg PO DAILY 01/14/24 01/14/24 Unknown History Allergies Allergy/AdvReac Type Severity Reaction Status Date / Time niacin Allergy Unknown Unknown Verified 02/26/25 22:47 simvastatin Allergy Unknown Unknown Verified 02/26/25 22:47 ticagrelor Allergy Unknown Unknown Verified 02/26/25 22:47 Penicillins Allergy Rash Verified 02/26/25 22:47 Review of Systems 2 Review of Systems: All systems reviewed & are unremarkable except as noted in HPI and below PMFSH Past Medical History Medical History Anxiety disorder Hypertension Hyperlipidemia CAD (coronary artery disease) Surgical History Surgical History H/O vasectomy Family History Family History Mother Cerebrovascular accident Father CAD (coronary artery disease) Father Hypertension Acute myocardial infarction Mother Hypertension Cerebrovascular accident Social History Social History Smoking status: Former smoker Smoking end date: 11/17/93 Alcohol intake: current Gender identity (if verbalized by the patient): Male Exam 2 Narrative: ? blood pressure 136/99 with pulse 78 O2 sat 95% on room air temperature 98.5? respirations 13 weight 108 kg. White male patient with no apparent distress.? Head normocephalic, atraumatic.? Eyes conjunctiva pink sclera nonicteric.? Extraocular movements are intact.? Ears externally normal.? Oropharynx is clear with moist mucous membranes without exudates.? Neck is supple nontender no lymphadenopathy.? Back is nontender.? Lungs are clear.? Heart is regular rate and rhythm without murmurs gallops or rubs.? Chest wall nontender. Abdomen is soft and nontender no hepatosplenomegaly or masses no CVA tenderness no abdominal bruits.? Extremities no cyanosis clubbing or edema.? Skin is warm and dry without rashes or lesions.? Neurological patient is alert and oriented x 4. Motor and sensory grossly intact.? Gait is normal. Course Vital Signs Vital signs: Vital Signs Temperature 36.9 C 02/26/25 22:25 Pulse Rate 78 02/26/25 22:25 Respiratory Rate 13 02/26/25 22:25 Blood Pressure 136/99 H 02/26/25 22:25 Pulse Oximetry 95 02/26/25 22:25 Oxygen Delivery Room Air 02/26/25 22:25 Temperature 36.9 C 02/26/25 22:25 Pulse Rate 68 02/27/25 00:45 Respiratory Rate 15 02/27/25 00:45 Blood Pressure 98/79 L 02/27/25 00:45 Pulse Oximetry 93 02/27/25 00:45 Oxygen Delivery Room Air 02/26/25 22:25 MDM - Chest Pain MDM Narrative Medical decision making narrative: ?Patient placed in room: Room 2 with his Jarret ? History and physical was performed. after patient's IV and medications were given patient burped his pain went down to 4 felt much better. Negative or unremarkable COVID flu RSV alcohol level troponin BNP CBC lipase D- dimer magnesium. Total bilirubin 1.4 AST 61 ALT 71 rest of CMP was normal Chest x-ray portable shows no active disease as independently interpreted by me. Urine tox screen: To our troponin: Negative 12:19 a.m. patient is pain-free. Independent Historian: jarret External Source Review: Differential Dx includes but not limited to: acute coronary syndrome gastritis peptic ulcer disease pneumonia Medications were Reviewed: home meds reviewed Medications given: aspirin 324 chewable, nitroglycerin sublingual, Protonix 40 mg IV Independently Interpreted by me: EKG showed normal sinus rhythm at a rate of 72 with normal axis no acute ST T wave abnormalities impression normal EKG is independently interpreted by me. Shared decision Making: evaluation was discussed all questions were asked and answered patient and agreed with plan. Social Situation Impacting Patients Care: History of coronary artery disease mi in [address] MAYORGA DIAGNOSIS: Epigastric pain DISPOSITION : discharge home CONDITION AT DISCHARGE: stable Lab Data 02/26/25 23:15 02/26/25 23:15 Labs: Lab Results 02/26/25 02/26/25 02/27/25 Range/Units 23:14 23:15 01:14 WBC 7.1 (4.8-10.8) K/mm3 RBC 5.25 (4.70-6.10) M/mm3 Hgb 15.7 (14.0-18.0) g/dL Hct 46.0 (40.0-54.0) % MCV 87.6 (78.0-102.0) fL MCH 29.9 (27.0-31.0) pg MCHC 34.1 (32-36) g/dL RDW 11.8 (11.6-14.4) % Plt Count 223 (150-420) K/mm3 MPV 9.7 (8.7-11.0) fl PT 10.5 (9.50-12.1) Seconds INR 0.9 APTT 23.3 L (23.9-30.70) Sec D-Dimer 0.25 (0.19-0.50) mg/L Sodium 140 (136-145) mmol/L Potassium 3.6 (3.5-5.1) mmol/L Chloride 102 (98-108) mmol/L Carbon Dioxide 28 (21-32) mmol/L Anion Gap 10 (4-12) mmol/L BUN 23 H (7-18) mg/dL Creatinine 1.26 (0.70-1.30) mg/dL Estim Creat Clear Calc Not Reportable Estimated GFR 59 (59 - ) Glucose 90 (70-99) mg/dL Calculated Osmolality 293 (285-295) mOsm/kg Calcium 9.4 (8.5-10.1) mg/dL Magnesium 2.1 (1.8-2.4) mg/dL Total Bilirubin 1.4 H (0.00-1.00) mg/dL AST 61 H (15-37) U/L ALT 71 H (16-63) U/L Alkaline Phosphatase 96 (46-116) U/L Troponin I 10.5 10.1 (0.00-60.4) ng/L NT-Pro-B Natriuret Pep 49 (0-125) pg/mL Total Protein 7.4 (6.4-8.2) g/dL Albumin 4.5 (3.4-5.0) g/dL Lipase 35 (16-77) U/L Urine Opiates Screen Negative (Negative) Urine Methadone Screen Negative (Negative) Ur Barbiturates Screen Negative (Negative) Ur Phencyclidine Scrn Negative (Negative) Ur Amphetamine Screen Negative (Negative) U Benzodiazepines Scrn Negative (Negative) Urine Cocaine Screen Negative (Negative) U Cannabinoids Screen Negative (Negative) Ethyl Alcohol < 3 (0-6) mg/dL Influenza A (RT-PCR) Negative (Negative) Influenza B (RT-PCR) Negative (Negative) RSV (RT-PCR) Negative (Negative) SARS-CoV-2 RNA (RT-PCR) Negative (Negative) Discharge Plan Discharge Clinical Impression: Abdominal pain, epigastric, Atypical chest pain Patient Disposition: Home Condition: Stable Instructions: Chest Pain (ED), Abdominal Pain (ED) Additional Instructions: take Protonix daily 40 mg. Follow-up with primary care provider this week. Return if you get worse or develops any new symptoms. Patient Language: Cymraes Prescriptions: New pantoprazole [Protonix] 40 mg tablet,delayed release (DR/EC) 40 mg PO HS Qty: 30 0RF No Action losartan [Cozaar] 50 mg tablet 50 mg PO DAILY pantoprazole [Protonix] 40 mg tablet,delayed release (DR/EC) 40 mg PO HS 28 Days Qty: 28 0RF atorvastatin [Lipitor] 40 mg tablet 40 mg PO DAILY aspirin [Jonel Low Dose Aspirin] 81 mg Tablet,Delayed Release (Dr/Ec) 81 mg PO DAILY carvedilol [Coreg] 3.125 mg tablet 3.125 mg PO BID alprazolam [Xanax] 0.25 mg tablet 0.25 mg PO PRN PRN (Reason: Anxiety) Patient Comments: take with flying lorazepam [Ativan] 0.5 mg tablet 0.5 mg PO HS epinephrine [EpiPen 2-Suleman] 0.3 mg/0.3 mL auto-injector 0.3 mg IM ONCE Qty: 2 0RF Rx Instructions: as a single dose; may repeat once Follow-up/Referrals: Luther Elkins MD [Primary Care Provider] - Time of Disposition: 01:48
--- OUTSIDE RECORDS SUMMARY | 2025-02-26 22:50 | XMS_ITS | Encounter Summary ---
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 Not [...] st Contact Info) Description 10/21/2025 11:00 AM POSTAL MAIL CARRIER Office Visit [facility] eld [address] [place] [address] Kavitha Swain, ANP-BC [address] [facility] [address] [place] [address] documented as of this encounter Procedures Procedure [...] on filedocumented in this encounter Care Teams Superintendent Drilling Relationship Specialty Start Date End Date Luther Elkins MD [address] [place] [address] PCP - General INTERNAL MEDICINE 11/27/16 Jose Carbajal MD [address] [place] [address] Consulting Physician CARDIOVASCULAR DISEASE 02/17/18 documented as of this encounter
--- OUTSIDE RECORDS SUMMARY | 2025-02-26 22:50 | XMS_ITS | Encounter Summary ---
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[employer] Not on file Not on file Not on dio e documented as of this encounter Plan of Treatment Upcoming Encounters Date Type Department Care Team (Late st Contact Info) Description 10/21/2025 11:00 AM DISPATCH LEAD Office Visit [facility] eld [address] [place] [phone] Kavitha Swain, ANP-BC [address] [facility] [address] [place] [address] documented as of this encounter Visit Diagnoses Not on filedocumented in this encounter Care Teams Inspector Watch Assembly Relationship Specialty Start Date End Date Luther Elkins MD [address] [place] [address] PCP - General INTERNAL MEDICINE 11/27/16 Jose Carbajal MD [address] [place] [address] Consulting Physician CARDIOVASCULAR DISEASE 02/17/18 documented as of this encounter
--- OUTSIDE RECORDS SUMMARY | 2025-02-26 22:50 | XMS_ITS | Clinical Summary ---
Author Organization [facility] Address [address] [place] [address] Care Team Providers Care Shipper And Receiving Name Role Phone Luther Elkins MD Primary Care Provider [phone] Solomon Arias MD, Jose Unavailable [phone] Allergies Active Allergy Reactions Criticality Noted Date [...] Department Care Team Description 12/03/2024 [facility] [address] [place] [address] Kavitha Swain, ANP-BC Lab Results; Record Request from Last 3 Months Family History Medical History Relation Comments [place] Father Stroke Mother Heart Disease Other premature [...] 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 Not on dio e Last Filed Vital Signs Vital Sign Reading Time Taken Comments Blood Pressure 118/80 10/19/2024 10:31 AM TESTER WAFER SUBSTRATE Pulse 67 10/19/2024 10:31 AM TESTER WAFER SUBSTRATE Temperature - - Respiratory Rate 16 10/19/2024 10:31 AM TESTER WAFER SUBSTRATE Oxygen Saturation 97% 10/19/2024 10:31 AM TESTER WAFER SUBSTRATE Inhaled Oxygen Concentration - - Weight 110.7 kg (244 lb) 10/19/2024 10:31 AM TESTER WAFER SUBSTRATE Height 177.8 cm (5' 10 ) 10/19/2024 10:31 AM TESTER WAFER SUBSTRATE Body Mass Index 35.01 10/19/2024 10:31 AM TESTER WAFER SUBSTRATE Plan of Treatment Upcoming Encounters Date Type Department Care Team (Late st Contact Info) Description 10/21/2025 11:00 AM TESTER WAFER SUBSTRATE [facility] Visit [facility] [address] [place] [address] Kavitah Swain, ANP-BC [address] [facility] [address] [place] [phone] Health Maintenance Due Date Last Done Comments [...] patient's age to complete this topic [place] [address] [place] [address] Well OPEN ACCESS [facility] Care Teams Shipper And Receiving Relationship Specialty Start Date End Date Luther Elkins MD [address] [place] [address] PCP - General INTERNAL MEDICINE 11/27/16 Jose Carbajal MD [address] [place] [address] Consulting Physician CARDIOVASCULAR DISEASE 02/17/18
--- OUTSIDE RECORDS SUMMARY | 2025-02-26 22:50 | XMS_ITS | Encounter Summary ---
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 Not on dio e documented as of this encounter Plan of Treatment Upcoming Encounters Date Type Department Care Team (Late st Contact Info) Description 10/21/2025 11:00 AM MENTAL HEALTH WORKER Office Visit [facility] eld [address] [place] [phone] Kavitha Swain, ANP-BC [address] [facility] [address] [place] [address] documented as of this encounter Visit Diagnoses Not on filedocumented in this encounter Care Teams Unit Nurse Relationship Specialty Start Date End Date Luther Elkins MD [address] [place] [address] PCP - General INTERNAL MEDICINE 11/27/16 Jose Carbajal MD [address] [place] [address] Consulting Physician CARDIOVASCULAR DISEASE 02/17/18 documented as of this encounter
[2025-02-26] MEDS: ASPIRIN 81 MG CHEWABLE TABLET 324 MG PO (22:59)
[2025-02-26] MEDS: ONDANSETRON INJ 4 MG/2 ML VIAL IV PUSH (23:10)
[2025-02-26] MEDS: NITROGLYCERIN SL 0.4 MG TABLET SUBLINGUAL (23:12)
[2025-02-26] MEDS: PANTOPRAZOLE SODIUM IV 40 MG VIAL IV PUSH (23:16)
[2025-02-26 23:17] VITALS: BP 115/69; PULSE 75
[2025-02-26 23:30] VITALS: BP 138/98; PULSE 76
[2025-02-26 23:31] LABS: D Dimer 0.25 mg/L (0.19-0.50); INR 0.9; Partial Thromboplastin Time 23.3 Sec (23.9-30.70); Prothrombin Time 10.5 Seconds (9.50-12.1)
[2025-02-26 23:37] LABS: Alanine Aminotransferase 71 U/L (16-63); Albumin Level 4.5 g/dL (3.4-5.0); Alkaline Phosphatase 96 U/L (46-116); Anion Gap 10 mmol/L (4-12); Aspartate Amino Transferase 61 U/L (15-37); Bilirubin,Total 1.4 mg/dL (0.00-1.00); Blood Urea Nitrogen 23 mg/dL (7-18); Calcium 9.4 mg/dL (8.5-10.1); Carbon Dioxide 28 mmol/L (21-32); Chloride 102 mmol/L (98-108); Estimated Glomerular Filt Rate 59; Ethanol < 3 mg/dL (0-6); Glucose 90 mg/dL (70-99); Lipase 35 U/L (16-77); Magnesium 2.1 mg/dL (1.8-2.4); NT Pro B Type Natriuretic Pept 49 pg/mL (0-125); Osmolality Calculated 293 mOsm/kg (285-295); Potassium 3.6 mmol/L (3.5-5.1); Sodium 140 mmol/L (136-145); Total Protein 7.4 g/dL (6.4-8.2); Troponin I 10.5 ng/L (0.00-60.4)
[2025-02-26 23:40] LABS: Hemoglobin 15.7 g/dL (14.0-18.0); Mean Corpuscular HGB Conc 34.1 g/dL (32-36); Mean Corpuscular Hemoglobin 29.9 pg (27.0-31.0); Mean Corpuscular Volume 87.6 fL (78.0-102.0); Mean Platelet Volume 9.7 fl (8.7-11.0); Platelet Count Result 223 K/mm3 (150-420); Red Blood Count 5.25 M/mm3 (4.70-6.10); Red Cell Distribution Width 11.8 % (11.6-14.4); White Blood Count 7.1 K/mm3 (4.8-10.8)
[2025-02-27] VITALS (7 sets, daily range): BP systolic 98–109; BP diastolic 77–83; PULSE 65–81; RESP 15–32; O2SAT 93–96
[2025-02-27 00:07] LABS: Influenza A QL RT-PCR Negative (Negative); Influenza B QL RT-PCR Negative (Negative); SARS-CoV-2 RNA PCR Negative (Negative)
[2025-02-27 00:08] LABS: RSV RNA, RT-PCR Negative (Negative)
[2025-02-27 00:31] LABS: Amphetamine Screen Urine Negative (Negative); Barbiturate Screen Urine Negative (Negative); Benzodiazepines Screen Urine Negative (Negative); Cannabinoid Screen Urine Negative (Negative); Cocaine Screen Urine Negative (Negative); Methadone Screen Urine Negative (Negative); Opiate Screen Urine Negative (Negative); Phencyclidine Screen Urine Negative (Negative)
[2025-02-27 01:39] LABS: Troponin I 10.1 ng/L (0.00-60.4)
== END 2025-02-27 01:57 | disposition home or self-care (01) ==
PROVIDERS: Emergency Provider Emergency Medicine; PCP Internal Medicine
DX: R10.13 Epigastric pain (principal); R07.9 Chest pain, unspecified; I25.2 Old myocardial infarction; I25.10 Atherosclerotic heart disease of native coronary artery without angina pectoris; I10 Essential (primary) hypertension; E78.5 Hyperlipidemia, unspecified; Z87.891 Personal history of nicotine dependence; Z20.822 Contact with and (suspected) exposure to COVID-19
CPT/HCPCS: 36415; 71045; 80053; 80307; 82077; 83690; 83735; 83880; 84484; 85027; 85380; 85610; 85730; 87637; 93005; 96374; 96375; 99284; A9270; J2405; J2470

== ENCOUNTER 2025-05-21 19:54 | Emergency (ER) | payer OTHER, BC, SELFPAY ==
--- OUTSIDE RECORDS SUMMARY | 2025-05-21 19:56 | XMS_ITS | Clinical Summary ---
Author Organization [facility] Address [address] [place] [address] Care Team Providers Care Pillowcase Maker Name Role Phone Luther Elkins MD Primary Care Provider [phone] Solomon Arias MD, Jose Unavailable [phone] Allergies Active Allergy Reactions Criticality Noted Date Comments Lisinopril Angioedema 10/25/2021 Penicillins Unknown 11/25/2016 Medications aspirin (ASPIRIN ADULT LOW DOSE) 81 MG Tab EC Take 1 tablet by mouth daily. 05/17/20 13 Active nitroGLYCERIN (NITROSTAT) 0.4 MG SL tablet Nitrostat (Nitroglycerin ) Tablet, Sublingual 0.4 Mg; place one tablet under tongue as needed for chest pain; 25; 3; -Feb-2015; Active 03/13/20 15 Active ezetimibe (ZETIA) 10 MG tablet Take 1 tablet (10 mg total) by mouth daily. 08/08/20 23 Active losartan-hydro CHLOROthiazide (HYZAAR) 50-12.5 MG tablet Take 1 tablet by mouth daily. 11/27/19 24 Active carvedilol (COREG) 12.5 MG tablet TAKE 1 TABLET (12.5 MG TOTAL) BY MOUTH 2 (TWO) TIMES DAILY WITH MEALS. 180 tablet 3 03/31/20 25 Active rosuvastatin (CRESTOR) 40 MG tablet TAKE 1 TABLET (40 MG TOTAL) BY MOUTH NIGHTLY AT BEDTIME. 90 tablet 3 05/02/20 25 Active rosuvastatin (CRESTOR) 40 MG tablet TAKE 1 TABLET (40 MG TOTAL) BY MOUTH NIGHTLY AT BEDTIME. 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 Not on file Not on dio e Last Filed Vital Signs Vital Sign Reading Time Taken Comments Blood Pressure 118/80 10/19/2024 10:31 AM ACCOUNTS PAYABLE SPECIALIST Pulse 67 10/19/2024 10:31 AM ACCOUNTS PAYABLE SPECIALIST Temperature - - Respiratory Rate 16 10/19/2024 10:31 AM ACCOUNTS PAYABLE SPECIALIST Oxygen Saturation 97% 10/19/2024 10:31 AM ACCOUNTS PAYABLE SPECIALIST Inhaled Oxygen Concentration - - Weight 110.7 kg (244 lb) 10/19/2024 10:31 AM ACCOUNTS PAYABLE SPECIALIST Height 177.8 cm (5' 10) 10/19/2024 10:31 AM ACCOUNTS PAYABLE SPECIALIST Body Mass Index 35.01 10/19/2024 10:31 AM ACCOUNTS PAYABLE SPECIALIST Plan of Treatment Upcoming Encounters Date Type Department Care Team (Late st Contact Info) Description 10/21/2025 11:00 AM ACCOUNTS PAYABLE SPECIALIST Office Visit [facility] [address] [place] [address] Kavitha Swain, ANP-BC [address] [facility] [address] [place] [phone] Health Maintenance Due Date Last Done Comments Colorectal Cancer Screening Colonoscopy (10 Years) 1969 Annual Physical 1972 Hepatitis C 1987 DTaP, Tdap and Td Vaccines (1 - Tdap) 1988 Hepatitis B Vaccines (1 of 3 - 19+ 3-dose series) 1988 Pneumococcal Vaccine: 50+ Years (1 of 2 - PCV) 1988 Zoster Vaccines (1 of 2) 2019 COVID-19 Vaccine ( - 2023- season) 2024 ASCVD LDL 04/30/2025 04/30/2024, 12/06/2022, 10/17/2021, Additional history exists Meningococcal B Vaccine Aged Out No l onger eligible based on patient's age to complete this topic Meningococcal Vaccine Aged Out No deedee herberth eligible based on patient's age to complete this topic RSV Immunizations Under 20 Months Aged Out No longer eligible based on patient's age to complete this topic Procedures Procedure Name Priority Date/Time Associated Diagnosis Comments LIPID PANEL (OUTSIDE LAB) Routine 04/30/2024 from Last 3 Months or Most Recently Relevant to Health Maintenance Results * LIPID PANEL (OUTSIDE LAB) (04/30/2024) CHOLESTEROL 140 0 - 200 TRIGLYCERIDES 45 0 - 150 LDL (CALCULATED) 77 <130 HDL 54 40 - 60 04/30/2024 us Doc Pccl Abstract LAB-OUTSIDE/ABSTRACTED Final R esult from Last 3 Months or Most Recently Relevant to Health Maintenance Insurance [facility] SA[facility] Instrument OPEN [facility] Care Teams Pillowcase Maker Relationship Specialty Start Date End Date Luther Elkins MD [address] [place] [phone] PCP - General INTERNAL MEDICINE 11/27/16 Jose Carbajal MD [address] [place] [phone] Consulting Physician CARDIOVASCULAR DISEASE 02/17/18
--- OUTSIDE RECORDS SUMMARY | 2025-05-21 19:56 | XMS_ITS | Encounter Summary ---
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 Not on dio e documented as of this encounter Plan of Treatment Upcoming Encounters Date Type Department Care Team (Late st Contact Info) Description 10/21/2025 11:00 AM CABLE TOOL DRILLER Office Visit [facility] eld [address] [place] [phone] Kavitha Swain, ANP-BC [address] [facility] [address] [place] [address] documented as of this encounter Visit Diagnoses Not on filedocumented in this encounter Care Teams Computer Customer Support Specialist Relationship Specialty Start Date End Date Luther Elkins MD [address] [place] [address] PCP - General INTERNAL MEDICINE 11/27/16 Jose Carbajal MD [address] [place] [address] Consulting Physician CARDIOVASCULAR DISEASE 02/17/18 documented as of this encounter
--- OUTSIDE RECORDS SUMMARY | 2025-05-21 19:56 | XMS_ITS | Encounter Summary ---
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 [address] [place] [address] Kavitha Swain, ANP-BC [address] [facility] [address] [place] [address] documented as of this encounter Visit Diagnoses Not on filedocumented in this encounter Care Teams Yarn Hauler Relationship Specialty Start Date End Date Luther Elkins MD [address] [place] [address] PCP - General INTERNAL MEDICINE 11/27/16 Jose Carbajal MD [address] [place] [address] Consulting Physician CARDIOVASCULAR DISEASE 02/17/18 documented as of this encounter
--- OUTSIDE RECORDS SUMMARY | 2025-05-21 19:56 | XMS_ITS | Encounter Summary ---
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 on file [...] st Contact Info) Description 10/21/2025 11:00 AM WIRE TURNING MACHINE OPERATOR Office Visit [facility] eld [address] [place] [address] Kavitha Swain, ANP-BC [address] [facility] [address] [place] [address] documented as of this encounter Procedures Procedure [...] on filedocumented in this encounter Care Teams Flight Engineer Instructor Relationship Specialty Start Date End Date Luther Elkins MD [address] [place] [address] PCP - General INTERNAL MEDICINE 11/27/16 Jose Carbajal MD [address] [place] [address] Consulting Physician CARDIOVASCULAR DISEASE 02/17/18 documented as of this encounter
[2025-05-21 19:58] VITALS: BP 137/93; PULSE 76; RESP 18; TEMP 36.2; O2SAT 96
--- NOTE | 2025-05-21 20:03 | ED_ITS ---
HPI - Wound/Laceration General Chief Complaint: Wound/Laceration Stated Complaint: thumb laceration Time Seen by Provider: 05/21/25 20:03 Source: patient Mode of arrival: ambulatory Limitations: no limitations History of Present Illness HPI narrative: 54-year-old male with a history of hypertension, dyslipidemia, CAD/ mi in 2012 with a negative cardiac catheterization subsequently, negative stress test in 2023, status post cholecystectomy last month presents to the ED with -- 4 cm superficial laceration over left lateral thumb. Got cut by a sharp edge. No other injuries noted. Received tetanus on 03/09/2020. Onset (ago): hour(s) ( 1 hour ago) Extremity Location: Left: hand Body four view annotation: 2 1. 4 cm superficial laceration over the left thumb Place: home Patient tetanus UTD: No Context: accidental Associated symptoms: none Related Data Home Medications ?Medication ?Instructions ?Recorded ?Confirmed ?Last Taken ?Type alprazolam 0.25 mg tablet (Xanax) 0.25 mg PO PRN PRN Anxiety 03/09/20 01/14/24 Unknown History aspirin 81 mg tablet,delayed 81 mg PO DAILY 03/09/20 01/14/24 Unknown History release (Jonel Low Dose Aspirin) atorvastatin 40 mg tablet (Lipitor) 40 mg PO DAILY 03/09/20 01/14/24 Unknown History carvedilol 3.125 mg tablet (Coreg) 3.125 mg PO BID 03/09/20 01/14/24 Unknown History lorazepam 0.5 mg tablet (Ativan) 0.5 mg PO HS 03/09/20 01/14/24 Unknown History losartan 50 mg tablet (Cozaar) 50 mg PO DAILY 01/14/24 01/14/24 Unknown History Allergies Allergy/AdvReac Type Severity Reaction Status Date / Time niacin Allergy Unknown Unknown Verified 05/21/25 20:03 simvastatin Allergy Unknown Unknown Verified 05/21/25 20:03 ticagrelor Allergy Unknown Unknown Verified 05/21/25 20:03 Penicillins Allergy Rash Verified 02/26/25 22:47 Review of Systems 2 Review of Systems: All systems reviewed & are unremarkable except as noted in HPI and below PMFSH Past Medical History Medical History Anxiety disorder Hypertension Hyperlipidemia CAD (coronary artery disease) Surgical History Surgical History H/O vasectomy Family History Family History Mother Cerebrovascular accident Father CAD (coronary artery disease) Father Hypertension Acute myocardial infarction Mother Hypertension Cerebrovascular accident Social History Social History Smoking status: Former smoker Smoking end date: 11/17/93 Alcohol intake: current Gender identity (if verbalized by the patient): Male Exam 2 Narrative: blood pressure 137/93. Oxygen saturation 96% on room air. Const: General: healthy appearing and no acute distress Nutritional Appearance: well nourished Orientation/consciousness: patient oriented x3 Limitations: no limitations HENMT: Head: normal to inspection Ears: external ears normal F lolly/Nose/Sinus: Normal external nose present Face and sinus: normal facial exam Mouth: Yes Normal oral and palatal mucosa present Throat: posterior oropharynx normal Eyes: Conjunctivae: conjunctivae normal Pupils: Equal, round and reactive pupils present EOM: EOMs intact bilaterally Direct Ophthalmoscopy: no photophobia Neck: Neck: normal visual inspection, no lymphadenopathy and no meningeal signs Chest: Chest palpation & inspection: normal inspection of the chest Resp: Effort & Inspection: normal respiratory effort Auscultation: clear to auscultation bilaterally Cardio: Rate: regular rate Rhythm: regular rhythm GI: GI Palp: Yes Soft to palpation Auscultation: normal bowel sounds O ther: No tenderness/rigidity / rebound. Incisions from recent cholecystectomy. Back/Spine/Pelvis: Back: no CVA tenderness Skin: General skin exam: normal color Rashes: no rashes Other: 4 cm superficial laceration over the left thumb. distal neurovascular bundle is intact. Neuro: General: patient oriented x3, moves all extremities, no meningeal signs, no focal motor deficits and CN's II-XI intact bilaterally Cranial nerves: Yes Nystagmus not present Speech: normal speech Gait exam (Neuro): Normal gait present Extrem: General: normal to inspection and no clubbing, cyanosis or edema O ther: 4 cm superficial laceration over the left thumb. Psych: Mental Status: mental status grossly normal Affect: normal affect Attitude: cooperative Course Course Emergency Course: Accidental injury to the left thumb with 4 cm superficial laceration. Vital Signs Vital signs: Vital Signs Temperature 36.2 C L 05/21/25 19:58 Pulse Rate 76 05/21/25 19:58 Respiratory Rate 18 05/21/25 19:58 Blood Pressure 137/93 H 05/21/25 19:58 Pulse Oximetry 96 05/21/25 19:58 Oxygen Delivery Room Air 05/21/25 19:58 Temperature 36.2 C L 05/21/25 19:58 Pulse Rate 76 05/21/25 19:58 Respiratory Rate 18 05/21/25 19:58 Blood Pressure 137/93 H 05/21/25 19:58 Pulse Oximetry 96 05/21/25 19:58 Oxygen Delivery Room Air 05/21/25 19:58 Procedures Laceration Laceration 1: Date: 05/21/25 Time: 20:19 Site: upper extremity Size (cm): 4 Description: linear Depth: simple, single layer ====== Skin Level ====== Skin layer closed with: dermabond ====== Subcutaneous Layer ====== ====== Muscle Layer ====== ====== Tendon Layer ====== MDM - Wound/Laceration MDM Narrative Medical decision making narrative: Left thumb superficial laceration Differential Diagnosis Differential diagnosis: Likely abrasion Discharge Plan Discharge Clinical Impression: Finger laceration Patient Disposition: Home Condition: Stable Instructions: Antibiotic Form, Laceration (ED), Skin Adhesive Care (ED) Patient Language: Yakut Prescriptions: No Action losartan [Cozaar] 50 mg tablet 50 mg PO DAILY pantoprazole [Protonix] 40 mg tablet,delayed release (DR/EC) 40 mg PO HS 28 Days Qty: 28 0RF atorvastatin [Lipitor] 40 mg tablet 40 mg PO DAILY aspirin [Jonel Low Dose Aspirin] 81 mg Tablet,Delayed Release (Dr/Ec) 81 mg PO DAILY carvedilol [Coreg] 3.125 mg tablet 3.125 mg PO BID alprazolam [Xanax] 0.25 mg tablet 0.25 mg PO PRN PRN (Reason: Anxiety) Patient Comments: take with flying lorazepam [Ativan] 0.5 mg tablet 0.5 mg PO HS epinephrine [EpiPen 2-Suleman] 0.3 mg/0.3 mL auto-injector 0.3 mg IM ONCE Qty: 2 0RF Rx Instructions: as a single dose; may repeat once pantoprazole [Protonix] 40 mg tablet,delayed release (DR/EC) 40 mg PO HS Qty: 30 0RF Follow-up/Referrals: Luther Elkins MD [Primary Care Provider] - Time of Disposition: 20:21
[2025-05-21] MEDS: TETANUS,DIPHTHERIA,AC PERTUSSIS ADULT 0.5 ML (ADACEL) IM (20:31)
--- OUTSIDE RECORDS SUMMARY | 2025-05-21 20:37 | XMS_ITS | Encounter Summary ---
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 file Not on dio e documented as of this encounter Plan of Treatment Upcoming Encounters Date Type Department Care Team (Late st Contact Info) Description 10/21/2025 11:00 AM CARPENTER AND JOINER Office Visit [facility] eld [address] [place] [address] Kavitha Swain, ANP-BC [address] [facility] [address] [place] [address] documented as of this encounter Visit Diagnoses Not on filedocumented in this encounter Care Teams Certified Nutritionist Relationship Specialty Start Date End Date Luther Elkins MD [address] [place] [address] PCP - General INTERNAL MEDICINE 11/27/16 Jose Carbajal MD [address] [place] [address] Consulting Physician CARDIOVASCULAR DISEASE 02/17/18 documented as of this encounter
--- OUTSIDE RECORDS SUMMARY | 2025-05-21 20:37 | XMS_ITS | Encounter Summary ---
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 Not on dio e documented as of this encounter Plan of Treatment Upcoming Encounters Date Type Department Care Team (Late st Contact Info) Description 10/21/2025 11:00 AM DELIVERY ASSISTANT Office Visit [facility] eld [address] [place] [address] Kavitha Swain, ANP-BC [address] [facility] [address] [place] [address] documented as of this encounter Visit Diagnoses Not on filedocumented in this encounter Care Teams Environmental Compliance Technician Relationship Specialty Start Date End Date Luther Elkins MD [address] [place] [address] PCP - General INTERNAL MEDICINE 11/27/16 Jose Carbajal MD [address] [place] [address] Consulting Physician CARDIOVASCULAR DISEASE 02/17/18 documented as of this encounter
--- OUTSIDE RECORDS SUMMARY | 2025-05-21 20:37 | XMS_ITS | Clinical Summary ---
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 Not on dio e Last Filed Vital Signs Vital Sign Reading Time Taken Comments Blood Pressure 118/80 10/19/2024 10:31 AM ELECTRIC ORGAN ASSEMBLER AND CHECKER Pulse 67 10/19/2024 10:31 AM ELECTRIC ORGAN ASSEMBLER AND CHECKER Temperature - - Respiratory Rate 16 10/19/2024 10:31 AM ELECTRIC ORGAN ASSEMBLER AND CHECKER Oxygen Saturation 97% 10/19/2024 10:31 AM ELECTRIC ORGAN ASSEMBLER AND CHECKER Inhaled Oxygen Concentration - - Weight 110.7 kg (244 lb) 10/19/2024 10:31 AM ELECTRIC ORGAN ASSEMBLER AND CHECKER Height 177.8 cm (5' 10) 10/19/2024 10:31 AM ELECTRIC ORGAN ASSEMBLER AND CHECKER Body Mass Index 35.01 10/19/2024 10:31 AM ELECTRIC ORGAN ASSEMBLER AND CHECKER Plan of Treatment Upcoming Encounters Date Type Department Care Team (Late st Contact Info) Description 10/21/2025 11:00 AM ELECTRIC ORGAN ASSEMBLER AND CHECKER Office Visit [facility] [address] [place] [address] Kavitha Swain, ANP-BC [address] [facility] [address] [place] [address] Health Maintenance Due Date Last Done Comments [...] Most Recently Relevant to Health Maintenance Insurance [facility] [employer] [facility] Care Teams Insulation Worker Apprentice Relationship Specialty Start Date End Date Luther Elkins MD [address] [place] [address] PCP - General INTERNAL MEDICINE 11/27/16 Jose Carbajal MD [address] [place] [address] Consulting Physician CARDIOVASCULAR DISEASE 02/17/18
--- OUTSIDE RECORDS SUMMARY | 2025-05-21 20:37 | XMS_ITS | Encounter Summary ---
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 Not on file Not [...] st Contact Info) Description 10/21/2025 11:00 AM BELL ATTENDANT Office Visit [facility] eld [address] [place] [address] Kavitha Swain, ANP-BC [address] [facility] [address] [place] [address] documented as of this encounter Procedures Procedure [...] on filedocumented in this encounter Care Teams Data Entry Relationship Specialty Start Date End Date Luther Elkins MD [address] [place] [address] PCP - General INTERNAL MEDICINE 11/27/16 Jose Carbajal MD [address] [place] [address] Consulting Physician CARDIOVASCULAR DISEASE 02/17/18 documented as of this encounter
== END 2025-05-21 20:48 | disposition home or self-care (01) ==
LOC: CHSED 20:36
PROVIDERS: Emergency Provider Internal Medicine Critical Care Medicine; PCP Internal Medicine
DX: S61.012A Laceration without foreign body of left thumb without damage to nail, initial encounter (principal); Z23 Encounter for immunization; I10 Essential (primary) hypertension; E78.5 Hyperlipidemia, unspecified; I25.10 Atherosclerotic heart disease of native coronary artery without angina pectoris; Z87.891 Personal history of nicotine dependence; W26.8XXA Contact with other sharp object(s), not elsewhere classified, initial encounter
CPT/HCPCS: 12002; 90471; 90715; 99282

== ENCOUNTER 2025-06-24 15:52 | Outpatient (CLI) | payer OTHER, BC, SELFPAY ==
--- OUTSIDE RECORDS SUMMARY | 2025-06-24 15:57 | XMS_ITS | Encounter Summary ---
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 Not [...] st Contact Info) Description 10/21/2025 11:00 AM RIBBING MACHINE OPERATOR Office Visit [facility] eld [address] [place] [address] Kavitha Swain, ANP-BC [address] [facility] [address] [place] [address] documented as of this encounter Procedures Procedure [...] on filedocumented in this encounter Care Teams Security Coordinator Relationship Specialty Start Date End Date Luther Elkins MD [address] [place] [address] PCP - General INTERNAL MEDICINE 11/27/16 Jose Carbajal MD [address] [place] [address] Consulting Physician CARDIOVASCULAR DISEASE 02/17/18 documented as of this encounter
--- OUTSIDE RECORDS SUMMARY | 2025-06-24 15:57 | XMS_ITS | Encounter Summary ---
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 Not on dio e documented as of this encounter Plan of Treatment Upcoming Encounters Date Type Department Care Team (Late st Contact Info) Description 10/21/2025 11:00 AM REGISTERED NURSE FETAL Office Visit [facility] eld [address] [place] [address] Kavitha Swain, ANP-BC [address] [facility] [address] [place] [address] documented as of this encounter Visit Diagnoses Not on filedocumented in this encounter Care Teams Corporate Development Analyst Relationship Specialty Start Date End Date Luther Elkins MD [address] [place] [address] PCP - General INTERNAL MEDICINE 11/27/16 Jose Carbajal MD [address] [place] [address] Consulting Physician CARDIOVASCULAR DISEASE 02/17/18 documented as of this encounter
--- OUTSIDE RECORDS SUMMARY | 2025-06-24 15:57 | XMS_ITS | Clinical Summary ---
Author Organization [facility] Address [address] [place] [address] Care Team Providers Care Telephoto Installer Name Role Phone Luther Elkins MD Primary Care Provider [phone] Solomon Arias MD, Jose Unavailable [phone] Allergies Active Allergy Reactions Criticality Noted Date [...] 4 Active carvedilol (COREG) 12.5 MG tablet TAKE 1 TABLET (12.5 MG TOTAL) BY MOUTH 2 (TWO) TIMES DAILY WITH MEALS. 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 Not on dio e Last Filed Vital Signs Vital Sign Reading Time Taken Comments Blood Pressure 118/80 10/19/2024 10:31 AM FIRER LOW PRESSURE Pulse 67 10/19/2024 10:31 AM FIRER LOW PRESSURE Temperature - - Respiratory Rate 16 10/19/2024 10:31 AM FIRER LOW PRESSURE Oxygen Saturation 97% 10/19/2024 10:31 AM FIRER LOW PRESSURE Inhaled Oxygen Concentration - - Weight 110.7 kg (244 lb) 10/19/2024 10:31 AM FIRER LOW PRESSURE Height 177.8 cm (5' 10) 10/19/2024 10:31 AM FIRER LOW PRESSURE Body Mass Index 35.01 10/19/2024 10:31 AM FIRER LOW PRESSURE Plan of Treatment Upcoming Encounters Date Type Department Care Team ([facility] st Contact Info) Description 10/21/2025 11:00 AM FIRER LOW PRESSURE Office Visit [facility] eld [address] [place] [address] Kavitha Swain, ANP-BC [address] [facility] [address] [place] [address] Health Maintenance Due Date Last Done Comments Colorectal Cancer Screening Colonoscopy (10 Years) 1969 Annual Physical 1972 Hepatitis C 1987 DTaP, Tdap and Td Vaccines (1 - Tdap) 1988 Hepatitis B Vaccines (1 of 3 - 19+ 3-dose series) 1988 Pneumococcal Vaccine: 50+ Years (1 of 2 - PCV) 1988 Zoster Vaccines (1 of 2) 2019 COVID-19 Vaccine (1 - 2023- season) 2024 ASCVD LDL 04/30/2025 04/30/2024, 12/0 06/2022, 10/17/2021, Additional history exists Meningococcal B Vaccine [...] Most Recently Relevant to Health Maintenance Insurance [facility] [employer] OPEN ACCESS [facility] Care Teams Telephoto Installer Relationship Specialty Start Date End Date Luther Elkins MD [address] [place] [address] PCP - General INTERNAL MEDICINE 11/27/16 Jose Carbajal MD [address] [place] [address] Consulting Physician CARDIOVASCULAR DISEASE 02/17/18
--- OUTSIDE RECORDS SUMMARY | 2025-06-24 15:57 | XMS_ITS | Encounter Summary ---
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 Not on dio e documented as of this encounter Plan of Treatment Upcoming Encounters Date Type Department Care Team (Late st Contact Info) Description 10/21/2025 11:00 AM CHAIN PERSON Office Visit [facility] eld [address] [place] [address] Kavitha Swain, ANP-BC [address] [facility] [address] [place] [address] documented as of this encounter Visit Diagnoses Not on filedocumented in this encounter Care Teams Mortgage Lender Relationship Specialty Start Date End Date Luther Elkins MD [address] [place] [address] PCP - General INTERNAL MEDICINE 11/27/16 Jose Carbajal MD [address] [place] [address] Consulting Physician CARDIOVASCULAR DISEASE 02/17/18 documented as of this encounter
[2025-06-24 16:20] LABS: Alanine Aminotransferase 56 U/L (6-50); Albumin Level 4.9 g/dL (3.5-5.1); Alkaline Phosphatase 69 U/L (38-126); Anion Gap 8 mmol/L (4-12); Aspartate Amino Transferase 39 U/L (17-59); Bilirubin,Total 1.7 mg/dL (0.2-1.3); Blood Urea Nitrogen 18 mg/dL (9-20); Calcium 9.6 mg/dL (8.4-10.2); Carbon Dioxide 25 mmol/L (22-30); Chloride 103 mmol/L (98-107); Estimated Glomerular Filt Rate > 60; Glucose 95 mg/dL (65-110); Osmolality Calculated 283 mOsm/kg (285-295); Potassium 3.7 mmol/L (3.4-5.0); Sodium 136 mmol/L (137-145); Total Protein 7.5 g/dL (6.3-8.2)
[2025-06-24 16:50] LABS: Prostate Specific Antigen 1.3 ng/mL (< OR = 4.0)
== END 2025-06-24 15:53 | disposition home or self-care (01) ==
PROVIDERS: PCP Internal Medicine; Visit Provider Internal Medicine
DX: Z00.00 Encounter for general adult medical examination without abnormal findings (principal); I25.10 Atherosclerotic heart disease of native coronary artery without angina pectoris
CPT/HCPCS: 36415; 80053; 84153; G0103